=== PATIENT | female | born 1960 | race Hispanic/Latino ===

== ENCOUNTER 2022-11-01 10:39 | Observation (INO) | payer OTHER ==
--- OUTSIDE RECORDS SUMMARY | 2022-11-01 10:43 | XMS REPORT | Continuity of Care Document ---
:1960 Author Organization [facility] t Address [address] [facility] [address] [place] [address] Care Team Providers Name Role Phone SHARPLESS Primary Care Physician Unavailable Castellon, Na L Attending Clinician Unavailable Segun Stoddard Attending Clinician Unavailable RON PAZ Attending Clinician Unavailable DAYNA BLACKBURN Attending Clinician Unavailable LUISA DAVIS Attending Clinician Unavailable Castellon, Na Ly Attending Clinician Unavailable CHRIS PLUMMER Attending Clinician Unavailable CHERISE PANDA Attending Clinician Unavailable LORIE CASEY Attending Clinician Unavailable MD CÉSAR GABRIEL Attending Clinician Unavailable Castellon, Na L Admitting Clinician Unavailable RON PAZ Admitting Clinician Unavailable DAYNA BLACKBURN Admitting Clinician Unavailable LUISA DAVIS Admitting Clinician Unavailable Cande, Na Ly Admitting Clinician Unavailable CÉSAR GABRIEL Admitting Clinician Unavailable MD CÉSAR GABRIEL Admitting Clinician Unavailable Payers Payer Name Policy Type Policy Number Effective Date Expiration Date S anuradha AETVIANNEY PPO [id number] 2009 2009 OPEN [facility] NAP 00:00:00 00:00:00 CDC REVIEW [id number] 2019 00:00:00 AETNA 53 [id number] Common [facility] AETNA 2 [id number] 2021 00:00:00 Problems Condition Condition Condition Status Onset Resolution Last Treating Co mments Source Name Details Category Date Date Treatment Clinician Date Upper GI Upper GI Disease Active Metho di bleeding bleeding 8-20 st 00:00: Hospita 00 l [id number] Primary Problem Common hypertensi Spirit on [facility] Hypertensi HTN Problem Commo n on (hypertens Spirit ion) [facility] Osteoporos Osteoporos Problem C ommon is is, Spirit unspecifie [facility] d osteoporos [facility] is type, Medical unspecifie Center d pathologic al fracture presence High High Problem Common cholestero cholestero Sp elizabeth l [facility] [id number] Mixed Problem Common hyperlipid Spirit emia [facility] Esophageal Esophageal Problem C ommon reflux reflux [facility] [id number] Pain of Problem Common ulnar side Spirit of wrist [facility] [id number] Pain in Problem Commo n joint of Spirit left wrist [facility] [id number] [place] [id number] tunnel Spirit syndrome - [facility] of left [facility] Pain in Pain in Problem Active 2020-11-24 Me moria joint, joint, 02:46:12 l multiple multiple Niraj n sites sites Active Problem 11/24/2020 [facility] Elevated Elevated Problem [facility] blood 02:46:12 l pressure pressure Niraj n reading reading without without diagnosis diagnosis of of hypertensi hypertensi on on Active Problem 11/24/2020 [facility] Encntr Encntr Problem Active 2020-11-24 Natanael minh long-term long-term 02:46:12 l NSAID use NSAID use Herm gabino Active Problem 11/24/2020 [facility] Pain in Pain in Problem Active 2020-11-24 Me moria joint of joint of 02:46:12 l right right [place] shoulder shoulder Active Problem 11/24/2020 [facility] Long-term Long-term Problem Active 2020-11-24 Memoria use of use of 02:46:12 l high-risk high-risk Herm gabino medication medication Active Problem 11/24/2020 [facility] Seropositi Seroposit Problem Active 2020-11-24 Memoria ve saul 02:46:12 l rheumatoid 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 rmann arthritis 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 Active Problem 11/24/2020 [facility] Heartburn Heartburn Diagnosis Active 2019-07-26 Memoria Active 02:45:33 l Diagnosis [place] 07/26/2019 [facility] Rash Rash Diagnosis Active 2019-12-04 Mem oria Active 02:45:40 l Diagnosis [place] 12/04/2019 [facility] Hematemesi Hematemes Diagnosis Active 2019-12-04 Memoria s of is of 02:45:40 l unknown unknown [place] etiology etiology Active Diagnosis 12/04/2019 [facility] Pain in Pain in Problem Active 2020-11-24 M emoria left hand left hand 02:46:12 l Active [place] Problem 11/24/2020 [facility] Age-relate Age-relat Problem Active 2020-11-24 Memoria d ed 02:46:12 l osteoporos osteoporos He rmann is without is without current current pathologic pathologic al al fracture fracture Active Problem 11/24/2020 [facility] Pain in Pain in Problem Active 2020-11-24 Me moria right hand right hand 02:46:12 l Active [place] Problem 11/24/2020 [facility] Inflammato Inflammat Problem Active 2020-11-24 Memoria ry ory 02:46:12 l polyarthro polyarthro He rmann giselle giselle Active Problem 11/24/2020 [facility] Hiatal Hiatal Disease Active [facility] with GERD with GERD [facility] deepa s/p EGD, s/p EGD, Center robotic robotic assisted assisted laparoscop laparoscop ic hiatal ic hiatal hernia hernia repair repair with mesh with mesh near near Eli Eli fundoplica fundoplica tion tion 01/26/2020 01/26/2020 Allergies, Adverse Reactions, Alerts Allergy Allergy Status Severity Reaction(s) Onset Inactive Treating Comm ents Source Name Type Date Date Clinician Christiano Prolia Active high BP 2021-0 Memoria 9-21 l 00:00: [place] 00 Methotre Methotre Active hives Memori a xate xate 9-21 l 00:00: [place] 00 Enbrel Enbrel Active janets, ISR Memor ia 9-21 l 00:00: Clarence 00 ADHESIVE Allergy Active Low Hives 2019-[address] [facility] TAPE 0-12 [facility] Center Adhesive Drug Active Hives, Rash 2019-[address] [facility] Tape Allergy 0-12 [facility] 00 Center POLLEN Allergy Active Med [facility] EXTRACTS 9-10 [facility] 00 Center Pollen Drug Active Other [facility] Extracts Allergy 9-10 reaction( Luke s 00:00: s): Other Medical 00 (See Center Comments) Light headed,it henrique DENOSUMA Allergy Active Med Other [facility] B 6-25 [facility] 00:[facility]: Medical 00 Center METHOTRE Allergy Active High Hives [facility] XATE 5-28 [facility] 00:00: Medical 00 [place] ETANERCE Allergy Active Med Other [facility] PT 5-28 [facility] 00:[facility]: Medical 00 Center Etanerce Drug Active Other (See (Enbrel) [facility] pt Allergy Comments) 5-28 Other [facility] 00:00: reaction( Medical 00 s): [place] MAEGAN jaquez Methotre Drug Active Hives Other [facility] xate Allergy 5-28 reaction( [facility] 00:00: s): hives Medical 00 Center NO KNOWN Allergy Active [facility] ALLERGIE S Social History Social Habit Start Date Stop Date Quantity Comments Source History of Tobacco Common Spirit - Use [facility] [place] [facility] Alcohol intake 2020-01-27 2020-01-27 [facility] alcohol [facility] (finding) Cigarette 2019-12-15 2019-12-[address] [facility] pack-years 00:00:00 00:00:00 [facility] Center Tobacco use and 2019-12-15 2019-12-[address] [facility] exposure 00:00:00 00:00:00 tobacco non-user Medical Center Alcohol Comment 2019-12-15 2019-12-[address] [facility] 00:00:00 00:00:00 [facility] Cigarettes smoked 2019-12-15 2019-12-15 [facility] current (pack per 00:00:00 00:00:00 Medical Center day) - Reported History of Social 2019-10-25 2019-10-[address] function 00:00:00 00:00:00 Hospital Sex Ass[birth year] At [birth year] [facility] medina 00:00:00 00:00:00 [facility] Smoking Status Start Date Stop Date Source Never Smoker Common Spirit - [facility] Ex-smoker 2019-12-15 00:00:00 2019-12-15 00:00:00 [facility] Medications Ordered Filled Start Stop Current Ordering Indication Dosage Frequency Signature Comments Components Source Medication Medication Date Date Medication? Clinician (SIG) Name Name Beatriz 7.5 Mobic 7.5 2021-03- No 1{table QD Mobic 7.5 MG MG 04-11 t} MG 00:00: 00:00 00 :00 Mobic 7.5 Mobic 7.5 2021-03- No 1{table QD Mobic 7.5 MG MG 04-11 t} MG 00:00: 00:00 00 :00 Bystolic Yes Opal 1 tablet Memoria 9-22 Vo l 02:46: Clarence 12 Ezetimibe Yes Opal 1 tablet Memoria 9-22 Vo l 02:46: Clarence 12 Calcium Yes Opal 1 tablet Memoria 1200 - Vo with a l 02:46: meal [place] 12 Vitamin D Yes Opal 1 capsule Memoria 9-22 Vo l 02:46: [place] 12 Bystolic Yes Opal 1 tablet Memoria 9-22 Vo l 02:46: Clarence Zetia Yes Opal 1 tablet Me moria 9-22 Vo l 02:46: [place] 02 Vitamin D Yes Opal 1 capsule Memoria 9-22 Vo l 02:46: [place] 02 Calcium Yes Opal 2 tablets Memoria 9-22 Vo l 02:46: [place] 02 Zoledronic Yes Opal 100 ml Memoria Acid 9-22 Vo over 15 l 02:46: minutes Clarence 02 famotidine 2019-03 Yes 20mg Q.5D Take [address] (PEPCID) 20 1-24 by mouth 2 Judit kes MG tablet 18:30: (two) Medical 35 times Center daily. ezetimibe 2019-03 Yes 10mg QD Take [address] (ZETIA) 10 1-24 by mouth [facility] mg tablet 18:30: daily. Medica l 35 Center nebivoloL 2019-03 Yes 5mg QD Take [address] (BYSTOLIC) 1-24 by mouth [facility] 5 MG tablet 18:30: daily. Medi deepa 35 Center Famotidine 2019-03 Yes Nancy 1 tablet Me moria 0-01 Vilardo at bedtime l 02:45: Clarence 40 Vitamin D 2019-03 Yes Nancy 1 capsule Me moria 0-01 Vilardo l 02:45: Clarence 40 Zoledronic 2019-03 Yes Nancy as Memori a Acid 0-01 Vilardo directed l 02:45: Clarence 40 Iron 2019-03 Yes Nancy not Memoria 0-01 Vilardo defined l 02:45: Cla[place] 40 cholecalcif 2019-03 Yes [address] harry, 0-01 [facility] vitamin D3, 00:00: Medica l (VITAMIN 00 Center D3) 125 mcg (5,000 unit) capsule nebivoloL Yes 10mg QD Take 10 mg Me thodi (BYSTOLIC) 8-[address] 5 MG tablet 15:45: daily. Hosp brynn 16 l ezetimibe Yes 10mg QD Take 10 mg Me thodi (ZETIA) 10 8-[address] mg tablet 15:45: daily. Hospit a 16 l tofacitinib 2019-0 Yes 11mg QD Take 11 mg Methodi (Xeljanz 8-[address] XR) 11 mg 15:45: daily. Hospit a tablet 16 l extended release 24 hr Olmesartan Yes Opal 1 tablet Memoria Medoxomil 5-23 Vo l 02:45: [place] 33 Pravastatin 2019-0 Yes Opal 1 tablet Memoria Sodium 5-23 Vo l 02:45: Clarence 33 Duexis 2019-0 Yes Opal 1 tablet M emoria 5-23 Vo l 02:45: [place] 33 Folic Acid 2018- Yes Opal 3 tablets Memoria 0-16 Vo l 00:00: Iron 2018-0 Yes Opal not Memoria 9-20 Vo defined l 02:46: [place] 26 Xeljanz XR 2018- Yes Nancy 1 tablet Me moria 8-16 Vilardo l 00:00: Reclast 2018-0 Yes Opal as Natanael minh 8-15 Vo directed l 00:00: Sulfasalazi 2018-0 Yes Opal 1 tablet a Memoria ne 6-25 Vo day for a l 00:00: week then 1 twice a day for a week then 2 tablets twice a day Famotidine 2018- Yes Opal 1 tablet Memoria 5-28 Vo at bedtime l 00:00: Ibuprofen 2018- Yes Opal 1 tablet Memoria 5-28 Vo with food l 00:00: or milk as needed Zoledronic Zoledronic No Zoledronic Acid 5 Acid 5 Acid 5 MG/100ML MG/100ML MG/100ML Calcium 500 Calcium 500 No 1{table BID Calcium MG MG t_with_ 500 MG meals} Aspirin 81 Aspirin 81 No 1{table QD Aspirin 81 81 MG 81 MG t} 81 MG Calcium Calcium No Calcium 1200+D3 1200+D3 1200+D3 Ezetimibe Ezetimibe No 1{table QD Ezetimibe 10 MG 10 MG t} 10 MG Bystolic 5 Bystolic 5 No 1{table QD Bystolic 5 MG MG t} MG Vitamin D3 Vitamin D3 No 1{capsu QD Vitamin D3 50 MCG 50 MCG le} 50 MCG (1999) (1999) (1999) Zoledronic Zoledronic No Zoledronic Acid 5 Acid 5 Acid 5 MG/100ML MG/100ML MG/100ML Calcium 500 Calcium 500 No 1{table BID Calcium MG MG t_with_ 500 MG meals} Zoledronic Zoledronic No Zoledronic Acid 5 Acid 5 Acid 5 MG/100ML MG/100ML MG/100ML Vitamin D3 Vitamin D3 No 1{capsu QD Vitamin D3 50 MCG 50 MCG le} 50 MCG (1999) (1999) (1999) Aspirin 81 Aspirin 81 No 1{table QD Aspirin 81 81 MG 81 MG t} 81 MG Calcium Calcium No Calcium 1200+D3 1200+D3 1200+D3 Calcium 500 Calcium 500 No 1{table BID Calcium MG MG t_with_ 500 MG meals} Ezetimibe Ezetimibe No 1{table QD Ezetimibe 10 MG 10 MG t} 10 MG Bystolic 5 Bystolic 5 No 1{table QD Bystolic 5 MG MG t} MG Zoledronic Zoledronic No Zoledronic Acid 5 Acid 5 Acid 5 MG/100ML MG/100ML MG/100ML Vitamin D3 Vitamin D3 No 1{capsu QD Vitamin D3 50 MCG 50 MCG le} 50 MCG (1999) (1999) (1999) Aspirin 81 Aspirin 81 No 1{table QD Aspirin 81 81 MG 81 MG t} 81 MG Calcium Calcium No Calcium 1200+D3 1200+D3 1200+D3 Calcium 500 Calcium 500 No 1{table BID Calcium MG MG t_with_ 500 MG meals} Ezetimibe Ezetimibe No 1{table QD Ezetimibe 10 MG 10 MG t} 10 MG Bystolic 5 Bystolic 5 No 1{table QD Bystolic 5 MG MG t} MG Aspirin 81 Aspirin 81 No 1{table QD Aspirin 81 81 MG 81 MG t} 81 MG Calcium Calcium No Calcium 1200+D3 1200+D3 1200+D3 Ezetimibe Ezetimibe No 1{table QD Ezetimibe 10 MG 10 MG t} 10 MG Bystolic 5 Bystolic 5 No 1{table QD Bystolic 5 MG MG t} MG Vitamin D3 Vitamin D3 No 1{capsu QD Vitamin D3 50 MCG 50 MCG le} 50 MCG (1999) (1999) (1999) Zoledronic Zoledronic No Zoledronic Acid 5 Acid 5 Acid 5 MG/100ML MG/100ML MG/100ML Calcium 500 Calcium 500 No 1{table BID Calcium MG MG t_with_ 500 MG meals} Aspirin 81 Aspirin 81 No 1{table QD Aspirin 81 81 MG 81 MG t} 81 MG Calcium Calcium No Calcium 1200+D3 1200+D3 1200+D3 Ezetimibe Ezetimibe No 1{table QD Ezetimibe 10 MG 10 MG t} 10 MG Bystolic 5 Bystolic 5 No 1{table QD Bystolic 5 MG MG t} MG Vitamin D3 Vitamin D3 No 1{capsu QD Vitamin D3 50 MCG 50 MCG le} 50 MCG (1999) (1999 [place]) (1999) Vital Signs Vital Name Observation Time Observation Value Comments Source WEIGHT 2020-01-27 05:00:00 87.6 kg HEIGHT 2020-01-26 06:00:00 162.6 cm WEIGHT 2020-01-26 06:00:00 85.458 kg HEIGHT 2020-01-23 08:59:00 162.6 cm WEIGHT 2020-01-23 08:59:00 85.276 kg HEIGHT 2019-12-17 09:38:00 152.4 cm WEIGHT 2019-12-17 09:38:00 87.181 kg HEIGHT 2019-12-15 08:42:00 162.6 cm WEIGHT 2019-12-15 08:42:00 86.183 kg height 2022-02-08 10:00:00 62 [in_i] [facility] weight 2022-02-08 10:00:00 190.4 [lb_av] [facility] temperature 2022-02-08 10:00:00 97.9 [degF] [facility] bmi 2022-02-08 10:00:00 34.82 kg/m2 [facility] blood pressure 2022-02-08 10:00:00 124 mm[Hg] [facility] - systolic [facility] blood pressure 2022-02-08 10:00:00 83 mm[Hg] [facility] - diastolic [facility] blood pressure 2022-01-30 10:00:00 72 mm[Hg] Common [facility] - diastolic [facility] height 2022-01-30 10:00:00 62 [in_i] [facility] weight 2022-01-30 10:00:00 185.8 [lb_av] [facility] temperature 2022-01-30 10:00:00 97.6 [degF] [facility] bmi 2022-01-30 10:00:00 33.98 kg/m2 [facility] oximetry 2022-01-30 10:00:00 98 % [facility] respiratory rate 2022-01-30 10:00:00 16 /min Comm on [facility] blood pressure 2022-01-30 10:00:00 138 mm[Hg] Common [facility] - systolic [facility] height 2021-07-28 09:40:00 62 [in_i] [facility] weight 2021-07-28 09:40:00 187 [lb_av] Common [facility] temperature 2021-07-28 09:40:00 98 [degF] Common [facility] bmi 2021-07-28 09:40:00 34.2 kg/m2 [facility] oximetry 2021-07-28 09:40:00 99 % [facility] respiratory rate 2021-07-28 09:40:00 16 /min Comm on [facility] blood pressure 2021-07-28 09:40:00 136 mm[Hg] Common [facility] - systolic [facility] blood pressure 2021-07-28 09:40:00 81 mm[Hg] Common [facility] - diastolic [facility] WEIGHT 2020-01-27 05:00:00 87.6 kg HEIGHT 2020-01-26 06:00:00 162.6 cm WEIGHT 2020-01-26 06:00:00 85.458 kg HEIGHT 2020-01-23 08:59:00 162.6 cm WEIGHT 2020-01-23 08:59:00 85.276 kg HEIGHT 2019-12-17 09:38:00 152.4 cm WEIGHT 2019-12-17 09:38:00 87.181 kg HEIGHT 2019-12-15 08:42:00 162.6 cm WEIGHT 2019-12-15 08:42:00 86.183 kg HEIGHT 2019-12-15 12:15:00 162.6 cm WEIGHT 2019-12-15 12:15:00 86.637 kg HEIGHT 2019-12-15 12:15:00 162.6 cm WEIGHT 2019-12-15 12:15:00 86.637 kg Weight 2020-11-23 18:00:00 [facility] Height 2020-11-23 18:00:00 [facility] [place] Temperature Oral (F) 2020-11-23 18:00:00 96.8 F [facility] [place] Heart Rate 2020-11-23 18:00:00 [facility] [place] Diastolic (mm Hg) 2020-11-23 18:00:00 Mem orial [place] Systolic (mm Hg) 2020-11-23 18:00:00 Natanael rial [place] Weight 2019-12-02 15:15:00 [facility] [place] Height 2019-12-02 15:15:00 [facility] [place] Temperature Oral (F) 2019-12-02 15:15:00 97.6 F [facility] [place] Heart Rate 2019-12-02 15:15:00 [facility] [place] Diastolic (mm Hg) 2019-12-02 15:15:00 Mem orial [place] Systolic (mm Hg) 2019-12-02 15:15:00 Natanael rial [place] Weight 2019-04-03 19:00:00 [facility] [place] Height 2019-04-03 19:00:00 [facility] [place] Heart Rate 2019-04-03 19:00:00 [facility] [place] Diastolic (mm Hg) 2019-04-03 19:00:00 Mem orial [place] Systolic (mm Hg) 2019-04-03 19:00:00 Natanael rial [place] Weight 2018-11-14 19:00:00 [facility] [place] Height 2018-11-14 19:00:00 [facility] [place] Heart Rate 2018-11-14 19:00:00 [facility] [place] Diastolic (mm Hg) 2018-11-14 19:00:00 Mem orial [place] Systolic (mm Hg) 2018-11-14 19:00:00 Natanael rial [place] Weight 2018-10-17 16:00:00 [facility] [place] Height 2018-10-17 16:00:00 [facility] [place] Heart Rate 2018-10-17 16:00:00 [facility] [place] Diastolic (mm Hg) 2018-10-17 16:00:00 Mem orial [place] Systolic (mm Hg) 2018-10-17 16:00:00 Natanael rial [place] Weight 2018-08-27 16:30:00 [facility] [place] Height 2018-08-27 16:30:00 [facility] [place] Heart Rate 2018-08-27 16:30:00 [facility] [place] Diastolic (mm Hg) 2018-08-27 16:30:00 Mem orial [place] Systolic (mm Hg) 2018-08-27 16:30:00 Natanael rial [place] Weight 2018-07-30 18:30:00 [facility] [place] Height 2018-07-30 18:30:00 [facility] [place] Heart Rate 2018-07-30 18:30:00 [facility] [place] Diastolic (mm Hg) 2018-07-30 18:30:00 Mem orial [place] Systolic (mm Hg) 2018-07-30 18:30:00 Natanael rial [place] Procedures This patient has no known procedures. Plan of Care Planned Activity Planned Date Details Comments Source Future Scheduled 2022-11-03 Influenza Vaccine (#1) [facility] 00:00:00 [code = Influenza Vaccine Nv dicde Center (#1)] Future Scheduled 2022-10-29 Screening for malignant [facility] Test 12:45:45 neoplasm of colon Hospital (procedure) [code = 059422377] Future Scheduled 2022-10-29 Screening for malignant [facility] Test 12:45:45 neoplasm of colon Hospital (procedure) [code = 036625663] Future Scheduled 2022-10-29 Screening for malignant [facility] Test 12:45:45 neoplasm of colon Hospital (procedure) [code = 004445847] Future Scheduled 2022-10-29 COVID-19 VACCINE (#1) [facility] 12:45:45 [code = COVID-19 VACCINE Hos pital (#1)] Future Scheduled 2022-10-29 Hepatitis C screening [facility] 12:45:45 (procedure) [code = Hospital 790719163] Future Scheduled 2022-10-29 Screening for malignant [facility] 12:45:45 neoplasm of cervix Hospital (procedure) [code = 715153676] Future Scheduled 2022-10-29 BREAST CANCER SCREENING [facility] 12:45:45 [code = BREAST CANCER Hospit al SCREENING] Future Scheduled 2022-10-29 Screening for malignant [facility] Test 12:45:45 neoplasm of colon Hospital (procedure) [code = 277784868] Future Scheduled 2022-10-29 Screening for malignant [facility] Test 12:45:45 neoplasm of colon Hospital (procedure) [code = 801129891] Future Scheduled 2022-10-29 SHINGLES VACCINES (1 of [facility] 12:45:45 2[facility] Future Scheduled 2022-10-29 INFLUENZA VACCINE (#1) M ethodist Test 12:45:45 [code = INFLUENZA VACCINE Ho spital (#1)] Future Scheduled 2022-03-[address] [facility] Test 00:00:00 (12+) [code = DEPRESSION Med ica Center SCREENING (12+)] Future Scheduled 2021-01-[address] [facility] Test 00:00:00 Counseling and Screening [facility] (12+) [code = Tobacco Cessation Counseling and Screening (12+)] Future Scheduled 2008-02-10 SHINGLES VACCINES ([address] [facility] Test 00:00:00 2) [code = SHINGLES [facility] VACCINES (1 of 2)] Future Scheduled 2003 Lipid panel (procedure) [facility] Test 00:00:00 [code = 10835134] Medical Ce nter Future Scheduled 1979 Screening for malignant [facility] Test 00:00:00 neoplasm of cervix Medical C enter (procedure) [code = 764818175] Future Scheduled 1977 DTAP/TDAP/TD VACCINES ([address] [facility] Test 00:00:00 - Tdap) [code = Medical Cent er DTAP/TDAP/TD VACCINES (1 - Tdap)] Future Scheduled 1976-02-10 HEPATITIS C SCREENING [facility] Test 00:00:00 [code = HEPATITIS C Medical Center SCREENING] Future Scheduled [address] [facility] Test 00:00:00 virus screening Medical Cent er (procedure) [code = 650970857] Future Scheduled 1960 COVID-19 VACCINE (#1) [facility] 00:00:00 [code = COVID-19 VACCINE Med ica Center (#1)] Future Scheduled 1958 Screening for malignant [facility] Test 00:00:00 neoplasm of breast Medical C enter (procedure) [code = 784727532] Future Scheduled 1958 CT Colonography (combo) [facility] Test 00:00:00 [code = CT Colonography [facility] (combo)] Future Scheduled 1958 Screening for malignant [facility] Test 00:00:00 neoplasm of colon Medical Ce nter (procedure) [code = 911008748] Future Scheduled 1958 Screening for malignant [facility] Test 00:00:00 neoplasm of colon Medical Ce nter (procedure) [code = 908724197] Future Scheduled 1958 Screening for malignant [facility] Test 00:00:00 neoplasm of colon Medical Ce nter (procedure) [code = 453418979] Future Scheduled 1958 Screening for malignant [facility] Test 00:00:00 neoplasm of colon Medical Ce nter (procedure) [code = 487597806] Future Scheduled 1960 Sigmoidoscopy [code = [facility] Test 00[facility]00 Sigmoidoscopy] Medical Cente r Encounters Start End Encounter Admission Attending Care Care Encounter Source Date/Time Date/Time Type Type Clinicians Facility Department ID 2022-11-01 Outpatient [id number] Memoria 10:42:21 [id number] Clarence [id number] 2022-02-08 Outpatient Castellon, Na STLMLC STLC [id number] Common 10:29:03 [facility] 2022-02-01 Outpatient Castellon, Na STLMLC STLMLC [id number] Common 13:30:01 [facility] 2022-01-25 Outpatient Castellon, Na STLMLC STLMLC [id number] Common 10:35:01 [facility] 2021-08-09 Outpatient Castellon, Na STLMLC STLMLC [id number] Common 14:01:01 [facility] 2021-07-28 Outpatient Stoddard, STLMLC STLMLC [id number] Common 09:41:03 [facility] 2020-12-08 Outpatient JACKSON, [facility] Surgery [id number] [facility] 12:57:33 RON 2020-12-08 Outpatient EMILY, [facility] Surgery [id number] [facility] 07:56:00 SUNEAL 2020-12-08 Outpatient SUSAN, [facility] Surgery [id number] [facility] 07:55:56 LUISA 2022-02-08 2022-02-08 OFFICE STLMLC STLMLC [id number] Co mmon 00:00:00 00:00:00 VISIT NEW Spir it PT LEVEL 3 [facility] 2022-01-30 2022-01-30 OFFICE STLMLC STLMLC [id number] Co mmon 00:00:00 00:00:00 VISIT EST Spir it PT LEVEL 3 [facility] 2021-12-16 2021-12-16 [id number] [facility] 12:00:00 12:00:00 34 [facility] 2021-08-09 2021-08-09 (WEB) STLMLC STLMLC [id number] Co mmon 00:00:00 00:00:00 [facility] 2021-07-28 2021-07-28 (TEL) STLMLC STLMLC [id number] Co mmon 00:00:00 00:00:00 [facility] 2021-07-28 2021-07-28 OFFICE STLMLC STLMLC [id number] Co mmon 00:00:00 00:00:00 VISIT EST Spir it PT LEVEL 3 [facility] 2021-04-07 2021-04-07 Outpatient VILMA PLUMMER [id number] Vilma 10:00:00 10:00:00 CHRIS ulloa 2020-11-23 2020-11-23 Outpatient PRL - PRL - [id number] eClinic 13:20:00 13:20:00 Rheumatol Rheumatolog alWorks ogy [facility] 2020-11-23 2020-11-23 Outpatient PRL - PRL - [id number] eClinic 13:00:00 13:00:00 Rheumatol Rheumatolog alWorks ogy y [facility] 2020-02-12 2020-02-12 Outpatient ARUN VALAYIL, SLEH SLEH [id number] SLEH 00:00:00 00:00:00 CHERISE 2020-01-23 2020-01-23 Outpatient EL SLEH SLEH [id number] SLEH 00:00:00 00:00:00 2020-01-23 2020-01-23 Outpatient SLEH SLEH [id number] SLEH 00:00:00 00:00:00 2020-01-23 2020-01-23 Outpatient EL SLEH SLEH [id number] SLEH 00:00:00 00:00:00 2020-01-23 2020-01-23 Outpatient EL SLEH SLEH [id number] SLEH 00:00:00 00:00:00 2020-01-23 2020-01-23 Outpatient EL SLEH SLEH [id number] SLEH 00:00:00 00:00:00 2019-12-15 2019-12-15 Outpatient EL SLEH SLEH [id number] SLEH 00:00:00 00:00:00 2019-12-15 2019-12-15 Outpatient EL SLEH SLEH [id number] SLEH 00:00:00 00:00:00 2019-12-02 2019-12-02 Outpatient AUGUST - AUGUST - [id number] eClinic 13:01:00 13:01:00 Rheumatol Rheumatolog alWorks ogy y [facility] 2019-12-02 2019-12-02 Outpatient PRL - PRL - [id number] eClinic 10:15:00 10:15:00 Rheumatol Rheumatolog alWorks ogy y [facility] 2019-11-18 2019-11-18 Outpatient AUGUST - AUGUST - [id number] eClinic 22:14:00 22:14:00 Rheumatol Rheumatolog alWorks ogy y [facility] 2019-10-23 2019-10-25 Inpatient AHMED, [facility] [id number] [place] [address] 00:00:00 00:00:00 YAHYA [address] 2019-10-22 2019-10-22 Outpatient AUGUST - AUGUST - [id number] eClinic 14:55:00 14:55:00 Rheumatol Rheumatolog alWorks ogy y [facility] 2019-10-21 2019-10-21 Outpatient AUGUSTMariluz COXU - [id number] eClinic 13:06:00 13:06:00 Rheumatol Rheumatolog alWorks ogy y [facility] 2019-10-20 2019-10-20 Outpatient AUGUST - AUGUST - [id number] eClinic 10:08:00 10:08:00 Rheumatol Rheumatolog alWorks ogy y [facility] 2019-10-03 2019-10-03 Outpatient PRL - PRL - [id number] eClinic 16:10:00 16:10:00 Rheumatol Rheumatolog alWorks ogy y [facility] 2019-07-25 2019-07-25 Outpatient AUGUST - AUGUST - [id number] eClinic 15:30:00 15:30:00 Rheumatol Rheumatolog alWorks ogy y [facility] 2019-07-21 2019-07-21 Outpatient PRL - PRL - [id number] eClinic 15:09:00 15:09:00 Rheumatol Rheumatolog alWorks ogy y [facility] 2019-04-07 2019-04-07 Outpatient AUGUST - AUGUST - [id number] eClinic 16:00:00 16:00:00 Rheumatol Rheumatolog alWorks ogy y [facility] 2019-04-03 2019-04-03 Outpatient AUGUST - AUGUST - [id number] eClinic 14:44:00 14:44:00 Rheumatol Rheumatolog alWorks ogy y [facility] 2019-04-03 2019-04-03 Outpatient PRL - PRL - [id number] eClinic 14:00:00 14:00:00 Rheumatol Rheumatolog alWorks ogy y [facility] 2018-12-18 2018-12-18 Outpatient AUGUST - AUGUST - [id number] eClinic 13:00:00 13:00:00 Rheumatol Rheumatolog alWorks ogy y [facility] 2018-12-09 2018-12-09 Outpatient AUGUST - AUGUST - [id number] eClinic 14:24:00 14:24:00 Rheumatol Rheumatolog alWorks ogy y [facility] 2018-12-09 2018-12-09 Outpatient AUGUST - AUGUST - [id number] eClinic 14:21:00 14:21:00 Rheumatol Rheumatolog alWorks ogy y [facility] 2018-11-14 2018-11-14 Outpatient AUGUST - AUGUST - [id number] eClinic 14:55:00 14:55:00 Rheumatol Rheumatolog alWorks ogy y [facility] 2018-11-14 2018-11-14 Outpatient PRL - PRL - [id number] eClinic 14:00:00 14:00:00 Rheumatol Rheumatolog alWorks ogy y [facility] 2018-10-17 2018-10-17 Outpatient PRL - PRL - [id number] eClinic 11:00:00 11:00:00 Rheumatol Rheumatolog alWorks ogy y [facility] 2018-08-31 2018-08-31 Outpatient AUGUST - AUGUST - [id number] eClinic 11:04:00 11:04:00 Rheumatol Rheumatolog alWorks ogy y [facility] 2018-08-27 2018-08-27 Outpatient AUGUST - AUGUST - [id number] eClinic 12:44:00 12:44:00 Rheumatol Rheumatolog alWorks ogy y [facility] 2018-08-27 2018-08-27 Outpatient PRL - PRL - [id number] eClinic 11:30:00 11:30:00 Rheumatol Rheumatolog alWorks ogy y [facility] 2018-08-07 2018-08-07 Outpatient AUGUST - AUGUST - [id number] eClinic 09:53:00 09:53:00 Rheumatol Rheumatolog alWorks ogy y [facility] 2018-07-30 2018-07-30 Outpatient PRL - PRL - [id number] eClinic 13:30:00 13:30:00 Rheumatol Rheumatolog alWorks ogy y [facility] Results Test Description Test Time Test Comments Results Result [facility] e Comments RAD, CHEST, 2 2020-02-03 Reason for VIEWS 1 Exam:->SOBReason 10:09:00 for Exam:->CHEST [facility] TIGHT[facility] : 1960 Sex: F FINAL REPORT EXAMINATION: RAD, CHEST, 2 VIEWS INDICATION: SOBCHEST TIGHTNESS COMPARISON: 01/27/2020 FINDINGS:TUBES and LINES: None. LUNGS: Lungs are well inflated. Perihilar peribronchial hazy opacity could be due to bronchitis.. There is no evidence of pneumonia or pulmonary edema. PLEURA: Small left pleural effusion. No pneumothorax. HEART AND MEDIASTINUM: The cardiomediastinal silhouette is unremarkable. BONES AND SOFT TISSUES: No acute osseous lesion. Soft tissues are unremarkable. UPPER ABDOMEN: No free air under the diaphragm. IMPRESSION: Perihilar peribronchial hazy opacity could be due to bronchitis. Small left pleural effusion. Signed: Jamey Sanchez [facility] Verified Date/Time: 02/13/2020 10:09:46 Reading Location: [facility] Reading Room [address] [place] [address] , ESOPHAGUS 2020-01-05 Reason for 4 exam:->S/p Hiatal 14:34:00 hernia repair with [facility] mesh and Toupet [facility] fundoplication CENTERName: KEILY NGUYEN : 1960 Sex: F FINAL REPORT EXAM: Esophagram was performed with water-soluble contrast. INDICATION: S/p Hiatal hernia repair with mesh and Toupet fundoplication. COMPARISON: None. FINDINGS:After injection of water-soluble contrast, the contrast does pass readily into the stomach without a leak. Fluoroscopy time: 1.67 minutesNumber of images: 12 IMPRESSION: Normal esophagram after mesh hiatal hernia repair and fundoplication. No leak. Signed: Lizbeth Navarro Verified Date/Time: 01/27/2020 14:34:31 Reading Location: [address] Consult Reading Room , CHEST, 1 2020-01-05 Reason for VIEW, NON DEPT 4 exam:->s/p ChT 11:49:[address] be performed at the [facility]?->Yes CENTERName: KEILY NGUYEN : 1960 Sex: F FINAL REPORT RAD, CHEST, 1 VIEW, NON DEPT INDICATION: s/p ChT removal COMPARISON: 8 hours prior FINDINGS: Portable frontal view of the chest. IMPRESSION: Support Lines: Pigtail catheter and enteric tube have been removed. Lungs and pleura: Lungs are underinflated but without new consolidation. Small left effusion. No pneumothorax.Heart and mediastinum: Stable contours. Additional findings: None. Signed: JR Lantigua Robert MDReport Verified Date/Time: 01/27/2020 11:49:26 Reading Location: [facility] Radiology Reading Room ESIUM 2020-01-27 11:38:00 Test Item Value Reference Range Interpretation Comme nts MAGNESIUM (ZUNILDA) (test code = 627) 2.3 mg/dL 1.6-2.6 Mechanical Cad Drafter ID - SABRINA CRISTINAOCT-GLUCOSE [id number] 11:24:00 Test Item Value Reference Range Interpretation Comments POC-GLUCOSE METER 106 mg/dL 70-110 : [facility] (ZUNILDA) (test code = [place], 1538) [address]: Mechanical Cad Drafter/Techni nehemias ID = [id number] for WILLARD CJ GOMEZ RAD, CHEST, 1 VIEW, NON [id number] 07:02:00Reason for exam:->s/p pigtail placementShould this be performed at the bedside?->Yes [facility] 1960 Sex: FFINAL REPORT RAD, CHEST, 1 VIEW, NON DEPT INDICATION: s/p pigtail placement COMPARISON: Prior day's exam FINDINGS: Portable frontal view of the chest. IMPRESSION: Support Lines: Stable. Lungs and pleura: Hypoinflated lungs without new consolidation. Central congestive changes are favored torepresent subsegmental atelectasis. No visible pneumothorax.Heart and mediastinum: Stable contours. Additional findings: None. Signed: JR Lantigua Robert MDReport Verified Date/Time: 01/27/2020 07:02:09 Reading Location: [address] Consult Reading Room BASIC METABOLIC [id number] 04:50:00 Test Item Value Reference Range Interpretation Comments SODIUM (BEAKER) 138 meq/L 136-145 (test code = 381) POTASSIUM (BEAKER) 4.2 meq/L 3.5-5.1 (test code = 379) CHLORIDE (BEAKER) 111 meq/L 98-107 H (test code = 382) CO2 (BEAKER) (test 19 meq/L 22-29 L code = 355) BLOOD UREA NITROGEN 11 mg/dL 7-21 (BEAKER) (test code = 354) CREATININE (BEAKER) 0.68 mg/dL 0.57-1.25 (test code = 358) GLUCOSE RANDOM 113 mg/dL 70-105 H (BEAKER) (test code = 652) CALCIUM (BEAKER) 8.0 mg/dL 8.4-10.2 L (test code = 697) EGFR (BEAKER) (test 88 mL/min/1.73 ESTIMA GEOVANNY GFR IS code = 1092) sq m NOT ACCURATE CREATININE CLEARANCE IN PREDICTING GLOMERULAR FILTRATION RATE . ESTIMATED GFR I S NOT APPLICABLE FOR DIALYSIS PATIEN TS. Mechanical Cad Drafter ID - PIAYA [id number] 04:50:00 Test Item Value Reference Range Interpretation Comments MAGNESIUM (BEAKER) (test code = 2.1 mg/dL 1.6-2.6 627) Mechanical Cad Drafter ID - PIAYA LCBC W/PLT COUNT & AUTO [id number] 03:50:00 Test Item Value Reference Range Interpretation Comments WHITE BLOOD CELL COUNT (BEAKER) 11.0 K/ L 3.5-10.5 H (test code = 775) RED BLOOD CELL COUNT (BEAKER) 4.01 M/ L 3.93-5.22 (test code = 761) HEMOGLOBIN (BEAKER) (test code = 12.0 GM/DL 11.2-15.7 410) HEMATOCRIT (BEAKER) (test code = 37.7 % 34.1-44.9 411) MEAN CORPUSCULAR VOLUME (BEAKER) 94.0 fL 79.4-94.8 (test code = 753) MEAN CORPUSCULAR HEMOGLOBIN 29.9 pg 25.6-32.2 (BEAKER) (test code = 751) MEAN CORPUSCULAR HEMOGLOBIN CONC 31.8 GM/DL 32.2-35.5 L (BEAKER) (test code = 752) RED CELL DISTRIBUTION WIDTH 12.4 % 11.7-14.4 (BEAKER) (test code = 412) PLATELET COUNT (BEAKER) (test 164 K/CU MM 150-450 code = 756) MEAN PLATELET VOLUME (BEAKER) 11.3 fL 9.4-12.3 (test code = 754) NUCLEATED RED BLOOD CELLS 0 /100 WBC 0-0 (BEAKER) (test code = 413) NEUTROPHILS RELATIVE PERCENT 80 % (BEAKER) (test code = 429) LYMPHOCYTES RELATIVE PERCENT 11 % (BEAKER) (test code = 430) MONOCYTES RELATIVE PERCENT 9 % (BEAKER) (test code = 431) EOSINOPHILS RELATIVE PERCENT 0 % (BEAKER) (test code = 432) BASOPHILS RELATIVE PERCENT 0 % (BEAKER) (test code = 437) NEUTROPHILS ABSOLUTE COUNT 8.79 K/ L 1.56-6.13 H (BEAKER) (test code = 670) LYMPHOCYTES ABSOLUTE COUNT 1.20 K/ L 1.18-3.74 (BEAKER) (test code = 414) MONOCYTES ABSOLUTE COUNT (BEAKER) 0.95 K/ L 0.24-0.36 H (test code = 415) EOSINOPHILS ABSOLUTE COUNT 0.00 K/ L 0.04-0.36 L (BEAKER) (test code = 416) BASOPHILS ABSOLUTE COUNT (BEAKER) 0.02 K/ L 0.01-0.08 (test code = 417) IMMATURE GRANULOCYTES-RELATIVE 0 % 0-1 PERCENT (BEAKER) (test code = 2801) BLOOD GAS, [id number] 03:24:00 Test Item Value Reference Range Interpretation Comments PH ARTERIAL (BEAKER) (test code = 7.42 7.35-7.45 383) PCO2 ARTERIAL (BEAKER) (test code 34 mm Hg 35-45 L = 384) PO2 ARTERIAL (BEAKER) (test code 80 mm Hg 80-90 = 385) O2 SATURATION ARTERIAL (BEAKER) 96.1 % 96.0-97.0 (test code = 386) HCO3 ARTERIAL (BEAKER) (test code 22 mmol/L 21-29 = 388) BASE EXCESS ARTERIAL (BEAKER) -2.2 mmol/L -2.0-3.0 L (test code = 387) PATIENT TEMPERATURE (BEAKER) 37.0 (test code = 1818) FIO2 (BEAKER) (test code = 1819) 32.0 POCT-GLUCOSE [id number] 20:57:00 Test Item Value Reference Range Interpretation Comments POC-GLUCOSE METER 121 mg/dL 70-110 H : TESTED A T [facility] 6720 (BEAKER) (test code = ALIX [facility], 1538) [address]: Mechanical Cad Drafter/Techni nehemias ID = [id number] for RA GLAND, THANIA POCT-GLUCOSE [id number] 18:40:00 Test Item Value Reference Range Interpretation Comments POC-GLUCOSE METER 137 mg/dL 70-110 H : TESTED A T [facility] 6720 (BEAKER) (test code = ALIX [facility], 1538) 78[address]: Mechanical Cad Drafter/Techni nehemias ID = [id number] for Ree d, Pepper [id number] 18:39:00 Test Item Value Reference Range Interpretation Comments MAGNESIUM (BEAKER) (test code = 2.3 mg/dL 1.6-2.6 627) Mechanical Cad Drafter ID - ADMINRAD, CHEST, 1 VIEW, NON [id number] 13:31:00Reason for exam:->s/p hiatal hernia repair and Toupet with R pigtail placementShould this be performed at the bedside?->Yes [facility] 1960 Sex: FFINAL REPORT RAD, CHEST, 1 VIEW, NON DEPT INDICATION: s/p hiatal hernia repair and Toupetwith R pigtail placement COMPARISON: January 23, 2020 FINDINGS: Portable frontal view of the chest.IMPRESSION: Support Lines: Enteric tube side-port is well beyond the GE junction. A pigtail catheteris present over the right hemithorax. Lungs and pleura: Lungs are hypoinflated with central congestive changes and scattered subsegmental atelectasis. No pneumothorax.Heart and mediastinum: Stable contours. Additional findings: None. Signed: JR Lantigua Robert MDReport Verified Date/Time: 01/26/2020 13:31:31 Reading Location: [facility] Radiology Reading Room BASIC METABOLIC [id number] 13:12:00 Test Item Value Reference Range Interpretation Comments SODIUM (BEAKER) 139 meq/L 136-145 (test code = 381) POTASSIUM (BEAKER) 3.9 meq/L 3.5-5.1 (test code = 379) CHLORIDE (BEAKER) 112 meq/L 98-107 H (test code = 382) CO2 (BEAKER) (test 18 meq/L 22-29 L code = 355) BLOOD UREA NITROGEN 13 mg/dL 7-21 (BEAKER) (test code = 354) CREATININE (BEAKER) 0.82 mg/dL 0.57-1.25 (test code = 358) GLUCOSE RANDOM 183 mg/dL 70-105 H (BEAKER) (test code = 652) CALCIUM (BEAKER) 8.9 mg/dL 8.4-10.2 (test code = 697) EGFR (BEAKER) (test 71 mL/min/1.73 ESTIMA GEOVANNY GFR IS code = 1092) sq m NOT ACCURATE CREATININE CLEARANCE IN PREDICTING GLOMERULAR FILTRATION RATE . ESTIMATED GFR I S NOT APPLICABLE FOR DIALYSIS PATIEN TS. Mechanical Cad Drafter ID - EDU [id number] 13:12:00 Test Item Value Reference Range Interpretation Comments MAGNESIUM (BEAKER) (test code = 1.9 mg/dL 1.6-2.6 627) Mechanical Cad Drafter ID - EDU CCBC W/PLT COUNT & AUTO [id number] 12:55:00 Test Item Value Reference Range Interpretation Comments WHITE BLOOD CELL COUNT (BEAKER) 13.7 K/ L 3.5-10.5 H (test code = 775) RED BLOOD CELL COUNT (BEAKER) 4.43 M/ L 3.93-5.22 (test code = 761) HEMOGLOBIN (BEAKER) (test code = 13.7 GM/DL 11.2-15.7 410) HEMATOCRIT (BEAKER) (test code = 42.5 % 34.1-44.9 411) MEAN CORPUSCULAR VOLUME (BEAKER) 95.9 fL 79.4-94.8 H (test code = 753) MEAN CORPUSCULAR HEMOGLOBIN 30.9 pg 25.6-32.2 (BEAKER) (test code = 751) MEAN CORPUSCULAR HEMOGLOBIN CONC 32.2 GM/DL 32.2-35.5 (BEAKER) (test code = 752) RED CELL DISTRIBUTION WIDTH 12.2 % 11.7-14.4 (BEAKER) (test code = 412) PLATELET COUNT (BEAKER) (test 187 K/CU MM 150-450 code = 756) MEAN PLATELET VOLUME (BEAKER) 11.1 fL 9.4-12.3 (test code = 754) NUCLEATED RED BLOOD CELLS 0 /100 WBC 0-0 (BEAKER) (test code = 413) NEUTROPHILS RELATIVE PERCENT 88 % (BEAKER) (test code = 429) LYMPHOCYTES RELATIVE PERCENT 7 % (BEAKER) (test code = 430) MONOCYTES RELATIVE PERCENT 4 % (BEAKER) (test code = 431) EOSINOPHILS RELATIVE PERCENT 0 % (BEAKER) (test code = 432) BASOPHILS RELATIVE PERCENT 0 % (BEAKER) (test code = 437) NEUTROPHILS ABSOLUTE COUNT 12.11 K/ L 1.56-6.13 H (BEAKER) (test code = 670) LYMPHOCYTES ABSOLUTE COUNT 0.90 K/ L 1.18-3.74 L (BEAKER) (test code = 414) MONOCYTES ABSOLUTE COUNT (BEAKER) 0.57 K/ L 0.24-0.36 H (test code = 415) EOSINOPHILS ABSOLUTE COUNT 0.01 K/ L 0.04-0.36 L (BEAKER) (test code = 416) BASOPHILS ABSOLUTE COUNT (BEAKER) 0.04 K/ L 0.01-0.08 (test code = 417) IMMATURE GRANULOCYTES-RELATIVE 1 % 0-1 PERCENT (BEAKER) (test code = 280) CALCIUM, [id number] 12:50:00 Test Item Value Reference Range Interpretation Comments CALCIUM IONIZED (BEAKER) (test 1.21 mmol/L 1.12-1.27 code = 698) PH, BLOOD (ZUNILDA) (test code = 7.26 1810) POCT-GLUCOSE [id number] 11:28:00 Test Item Value Reference Range Interpretation Comments POC-GLUCOSE METER 105 mg/dL 70-110 : TESTED A T [facility] 6720 (ZUNILDA) (test code = [place], 1538) [id number]: Mechanical Cad Drafter/Techni nehemias ID = [id number] for Marilyn Alvarenga SARS-COV2/RT-PCR ([facility])2020-01-24 08:53:00 Test Item Value Reference Range Interpretation Comments SARS-COV2/RT-PCR (test Negative Not Detected, Negative, code = 0409635) See external report for linked test SARS-COV-2 PERFORMING LAB [facility] LINDSAY (test code = 7473749) Negative result for this test determines that SARS-CoV-2 RNA was not present in the specimen above the Limit of Detection (LOD). However, Negative results do not preclude SARS-CoV-2 infection and should not be used as the sole basis for treatment or patient management decisions. Negative results must be combined with clinical observations, patient history, and epidemiological information. A false negative result may occur if a specimen is improperly collected, transported or handled. A false negative result should be considered if patient's recent exposures or clinical presentation indicate that COVID-19 (SARS-CoV-2) is likely and diagnostic tests for other causes of illness are negative. Re-testing should be considered in cases of suspected false negatives.The limit of detection for this assay is 100 copies/mL.This SARS CoV-2 test is a real-time RT-PCR test intended for the qualitative detection of nucleic acid from SARS-CoV-2 in a nasopharyngeal swab specimen collected from individuals suspected of COVID-19 by their healthcare provider.This test has not been Food and Drug Administration (FDA) cleared or approved. This is a modified version of an approved Emergency Use Authorization (EUA) and is in the process of review by the FDA. Once authorized by the FDA, the issued EUA will be effective until the declaration that circumstances exist justifying the authorization of the emergency use ofin vitro diagnostic tests for detection and/or diagnosis of COVID-19 is terminated under Section 564(b)(2) of the Act or the EUA is revoked under Section 564(g) of the Act.Testing was performed using the Scanlon SARS-CoV-2 assay.Fact Sheet for Healthcare Providers:https://www.[employer]/eugenio/RT_SAR X-JcU-5_MAG_Tlsp_Fuuos_02-721500.pdfFact Sheet for Healthcare Patients:https://www.[employer]/s al/RN_WJZN-CmC-1_Yrbsess_Ivhk_Hdcor_KH_10-297879R6.pdfPerforming Laboratory:[facility] [place] [address] COMPREHENSIVE METABOLIC [id number] 12:31:00 Test Item Value Reference Range Interpretation Comments TOTAL PROTEIN 7.5 gm/dL 6.0-8.3 (BEAKER) (test code = 770) ALBUMIN (BEAKER) 4.5 g/dL 3.5-5.0 (test code = 1145) ALKALINE PHOSPHATASE 57 U/L 40-150 (BEAKER) (test code = 346) BILIRUBIN TOTAL 0.6 mg/dL 0.2-1.2 (BEAKER) (test code = 377) SODIUM (BEAKER) (test 138 meq/L 136-145 code = 381) POTASSIUM (BEAKER) 4.0 meq/L 3.5-5.1 (test code = 379) CHLORIDE (BEAKER) 108 meq/L 98-107 H (test code = 382) CO2 (BEAKER) (test 24 meq/L 22-29 code = 355) BLOOD UREA NITROGEN 15 mg/dL 7-21 (BEAKER) (test code = 354) CREATININE (BEAKER) 0.81 mg/dL 0.57-1.25 (test code = 358) GLUCOSE RANDOM 90 mg/dL 70-105 (BEAKER) (test code = 652) CALCIUM (BEAKER) 9.9 mg/dL 8.4-10.2 (test code = 697) AST (SGOT) (BEAKER) 24 U/L 5-34 (test code = 353) ALT (SGPT) (BEAKER) 25 U/L 6-55 (test code = 347) EGFR (BEAKER) (test 72 mL/min/1.73 ESTIMA GEOVANNY GFR IS code = 1092) sq m NOT ACCURATE CREATININE CLEARANCE IN PREDICTING GLOMERULAR FILTRATION RATE . ESTIMATED GFR I S NOT APPLICABLE FOR DIALYSIS PATIEN TS. Mechanical Cad Drafter ID - MNOIQUE, CHEST, 2 [id number] 12:25:00Reason for exam:- >Gastroesophageal reflux disease, unspecified whether esophagitis present [K21.9][facility] CENTERName: [facility]ILY [facility]GUYEN : 1960 Sex: FFINAL REPORT PA and Lateral views of the chest dated 01/23/2020 Clinical information: Gastroesophageal reflux disease, unspecified whether esophagitis present [K21.9] Comment: Heart is normal in size. Pulmonary vasculature is unremarkable. Lungs are clear. No pulmonary infiltrate or pleural effusion is present. Impression: No active cardiopulmonary disease. Signed: Cathy Guerineport Verified Date/Time: 01/23/2020 12:25:56 PT/[id number] 12:19:00 Test Item Value Reference Range Interpretation Comments PROTIME (BEAKER) (test code = 13.5 seconds 11.9-14.2 759) INR (BEAKER) (test code = 370) 1.06 <=5.90 PARTIAL THROMBOPLASTIN TIME 26.6 seconds 22.5-36.0 (BEAKER) (test code = 760) Effective 07/31/2018: PT Reference Range ChangeNew: 11.9-14.2 Previous: 11.7- 14.7RECOMMENDED COUMADIN/WARFARIN INR THERAPY RANGESSTANDARD DOSE: 2.0-3.0 Includes: PROPHYLAXIS for venous thrombosis, systemic embolization; TREATMENT for venous thrombosis and/or pulmonary embolus.HIGH RISK: Target INR is 2.5-3.5 for patients wiht mechanical heart valves.CBC W/PLT COUNT & AUTO [id number] 12:12:00 Test Item Value Reference Range Interpretation Comments WHITE BLOOD CELL COUNT (BEAKER) 6.5 K/ L 3.5-10.5 (test code = 775) RED BLOOD CELL COUNT (BEAKER) 4.87 M/ L 3.93-5.22 (test code = 761) HEMOGLOBIN (BEAKER) (test code = 14.8 GM/DL 11.2-15.7 410) HEMATOCRIT (BEAKER) (test code = 46.2 % 34.1-44.9 H 411) MEAN CORPUSCULAR VOLUME (BEAKER) 94.9 fL 79.4-94.8 H (test code = 753) MEAN CORPUSCULAR HEMOGLOBIN 30.4 pg 25.6-32.2 (BEAKER) (test code = 751) MEAN CORPUSCULAR HEMOGLOBIN CONC 32.0 GM/DL 32.2-35.5 L (BEAKER) (test code = 752) RED CELL DISTRIBUTION WIDTH 12.4 % 11.7-14.4 (BEAKER) (test code = 412) PLATELET COUNT (BEAKER) (test 213 K/CU MM 150-450 code = 756) MEAN PLATELET VOLUME (BEAKER) 11.7 fL 9.4-12.3 (test code = 754) NUCLEATED RED BLOOD CELLS 0 /100 WBC 0-0 (BEAKER) (test code = 413) NEUTROPHILS RELATIVE PERCENT 60 % (BEAKER) (test code = 429) LYMPHOCYTES RELATIVE PERCENT 27 % (BEAKER) (test code = 430) MONOCYTES RELATIVE PERCENT 9 % (BEAKER) (test code = 431) EOSINOPHILS RELATIVE PERCENT 3 % (BEAKER) (test code = 432) BASOPHILS RELATIVE PERCENT 1 % (BEAKER) (test code = 437) NEUTROPHILS ABSOLUTE COUNT 3.90 K/ L 1.56-6.13 (BEAKER) (test code = 670) LYMPHOCYTES ABSOLUTE COUNT 1.75 K/ L 1.18-3.74 (BEAKER) (test code = 414) MONOCYTES ABSOLUTE COUNT (BEAKER) 0.57 K/ L 0.24-0.36 H (test code = 415) EOSINOPHILS ABSOLUTE COUNT 0.19 K/ L 0.04-0.36 (BEAKER) (test code = 416) BASOPHILS ABSOLUTE COUNT (BEAKER) 0.07 K/ L 0.01-0.08 (test code = 417) IMMATURE GRANULOCYTES-RELATIVE 0 % 0-1 PERCENT (BEAKER) (test code = 2801) TISSUE [id number] 09:53:00Surgical Pathology Report Case: [id number] Authorizing Provider: Dayna Blackburn MD Collected:12/17/2019 10:13 AM Ordering Location: [facility] Endoscopy Received: 12/17/2019 12:16 PM Services Pathologist: Katelyn Zepeda MD Specimen: Stomach, Random Stomach Bx STOMACH, RANDOM BIOPSY: - MILD CHRONIC GASTRITIS WITH REACTIVE CHANGE - NO HELICOBACTER PYLORI MICROORGANISMS IDENTIFIED Signing Pathologist Direct Phone Line: [phone] signed by Katelyn Zepeda MD on 12/19/2019 at 9:53 [facility] /[id number] exam: chest painRandom stomach biopsyA. Received in formalin labeled with the patient's name, medical record number and "stomach" are three pieces of jones-pink mucosal-covered tissue that measure 0.7 x 0.4 x 0.2 cm in aggregate. The specimen is submitted in toto following filtration in cassette A1. DLR/pl Performed The interpretation of this case included the use of immunohistochemistry or special stains.Control Slides Examined: In-house known positive controls were evaluated alongwith the test tissue. These control slides run alongside of the patients sample show appropriate staining. Internal positive and negative controls when available are evaluated Immunohistochemistry technical testing was performed at [facility], Pathology Laboratory where it was developed and its performance characteristics were determined. It has not been cleared or approved by the [place]. Food and Drug Administration. The FDA has determined that such clearance or approval is not ne cessary. The test is used for clinical purposes. It should not be regarded as investigational or forresearch. This laboratory is certified under the Clinical Laboratory Improvement Amendments of 1988 (CLIA-88) as qualified to perform high complexity clinical laboratory testing.SARS-COV2/RT-PCR ([facility]) 2019-12-15 18:20:00 Test Item Value Reference Range Interpretation Comments SARS-COV2/RT-PCR (test Negative Not Detected, Negative, code = 0435816) See external report for linked test SARS-COV-2 PERFORMING LAB [facility] (test code = [id number]) Negative result for this test determines that SARS-CoV-2 RNA was not present in the specimen above the Limit of Detection (LOD). However, Negative results do not preclude SARS-CoV-2 infection and should not be used as the sole basis for treatment or patient management decisions. Negative results must be combined with clinical observations, patient history, and epidemiological information. A false negative result may occur if a specimen is improperly collected, transported or handled. A false negative result should be considered if patient's recent exposures or clinical presentation indicate that COVID-19 (SARS-CoV-2) is likely and diagnostic tests for other causes of illness are negative. Re-testing should be considered in cases of suspected false negatives.The limit of detection for this assay is 800 copies/mL.This SARS CoV-2 test is a real-time RT-PCR test intended for the qualitative detection of nucleic acid from SARS-CoV-2 in a nasopharyngeal swab specimen collected from individuals suspected of COVID-19 by their healthcare provider.This test has not been Food and Drug Administration (FDA) cleared or approved. This is a modified version of an approved Emergency Use Authorization (EUA) and is in the process of review by the FDA. Once authorized by the FDA, the issued EUA will be effective until the declaration that circumstances exist justifying the authorization of the emergency use ofin vitro diagnostic tests for detection and/or diagnosis of COVID-19 is terminated under Section 564(b)(2) of the Act or the EUA is revoked under Section 564(g) of the Act.Fact Sheet for Healthcare Prov iders:https://www.[employer]com/sites/default/files/product/documents/Fact_Sheet_HC _Bjnaxskrd_Ixgg_FOWS-JhQ-5.pdfFact Sheet for Healthcare Patients:https://www.[employer]com/sites/default/files/product/docume nts/Fbnt_Hnnxt_Awltowuo_Fvne_VOLY-ImN-2.pdfPerforming Laboratory:[facility], [place] [address]BKJN-EgX-2 (COVID-19) RNA [Presence] in Respiratory specimen by CAMI with probe [id number] 05:53:47 Test Item Value Reference Range Interpretation Comments SARS-CoV-2 (COVID-19) RNA Not detected Not-Detected [Presence] in Respiratory specimen by CAMI with probe detection (test code = 64843-9) SHASHA RODRIGUEZ WEST Notes Date/Time Note Provider Source 2020-01-[address] [facility] 21:37:37-00:00 OPERATIVE/PROCEDURE REPORT KEILY NGUYEN FACILITY: [facility] Billing #: [id number] Room: [address] [place] [address] MR #: [id number] : 1960 DATE OF PROCEDURE: 01/26/2020 SURGEON: Ron Paz MD PREOPERATIVE DIAGNOSES: 1. Gastroesophageal reflux disease. 2. Type 1 hiatal hernia. 3. Hypertension. 4. Rheumatoid arthritis. 5. Hyperlipidemia. POSTOPERATIVE DIAGNOSES: 1. Gastroesophageal reflux disease. 2. Type 1 hiatal hernia. 3. Hypertension. 4. Rheumatoid arthritis. 5. Hyperlipidemia. NAME OF OPERATION: 1. Flexible esophagogastroduodenoscopy. 2. Robot-assisted laparoscopic hiatal hernia rep air with mesh and near Eli fundoplication. 3. Right pleural pigtail catheter placement. ASSISTANTS: 1. Kate Jaquez MD (4th year General Surgery reside nt). 2. Min Burger CSA. SPECIMENS: None. ANESTHESIA: General endotracheal anesthesia. ESTIMATED BLOOD LOSS: 20 mL. COMPLICATIONS: None. DRAINS: 8.3-Angolan right pleural pigtail cathete r. FLUIDS: 2200 mL crystalloid. OPERATIVE FINDINGS: 1. Flexible esophagogastroduodenoscopy was notab le for a 2 cm hiatal hernia and LA grade B esophagitis in the distal esophagus. 2. I performed a robot-assisted laparoscopic hia wisam hernia repair. The esophagus was circumferentially mobi lized into the mediastinum to above the level of the inferior p ulmonary veins. 3. The hiatus was repaired primarily using two i nterrupted 0 Ethibond sutures posteriorly and two interrupted 0 Ethibond sutures anteriorly. The medial border of the rig ht crural pillar was denuded of its peritoneal lining whil e trying to expose high in the mediastinum to achieve suffic ient intraabdominal length. Consequently, I reinforce d the repair with a piece of Phasix ST mesh cut in a U-shaped configuration around the hiatus. 4. The patient had 3 cm of true intraabdominal e sophagus without tension. Consequently, a Juan Antonio gastropl asty was not required. 5. At the end of the dissection, both the anteri or and posterior vagus nerves were identified and were intact. 6. I performed a 2.5 cm partial posterior (near Eli) fundoplication over a 54-Angolan bougie. The fund oplication was constructed between the distal esophagus and vag us nerves and secured in place using two 2-0 Ethibond sutures between the line of the short gastrics and distal esophagus on the side of the fundoplication. 7. Near the level of the right inferior pulmonar y vein, the pleural space was opened. Consequently, at the e nd of the operation I left an 8.3-Angolan pigtail catheter. OPERATIVE INDICATIONS: Ms. Nguyen is a 59-year-old woman with a 20-year history of gastroesophageal reflux disea se, which has worsened over the last 10 years. She complains o f heartburn, regurgitation, and nocturnal symptoms despite sl eeping upright. H2 blockers provide partial symptom relief, but she requires frequent antacids for breakthrough symptoms. Due to osteoporosis, her use of PPIs is limited. Conseq uently, she sought further evaluation for laparoscopic antir eflux surgery. Her evaluation included an esophagram, which dem onstrated a small hiatal hernia. Esophageal manometry demons trated preserved peristalsis. A Mcintosh pH study was posi tive (DeMeester score, 14.9). The patient has preserv ed esophageal peristalsis, she was concerned about bloating wi th a Eli fundoplication and was not interested in magneti c sphincter augmentation. Consequently, the operative plan i s a partial fundoplication. After discussing the risks and b enefits of the procedure, the patient provided informed consent for a flexible esophagogastroduodenoscopy, robot-assisted lapar oscopic hiatal hernia repair, near Eli fundoplication, possi ble Juan Antonio gastroplasty, and possible pleural pigtail madeleine ter placement. DESCRIPTION OF PROCEDURE: On 01/26/2020, the pat ient was brought to the operating room and placed supine on the operating room table. Following an uneventful in duction of general anesthesia, she was intubated without in cident. A radial arterial line and additional peripheral I Vs were placed by the anesthesia team. A Russell catheter was ins erted. Pneumatic compression devices were placed on his lower extremities. A foot board was placed. Both arms were tucked. All bony prominences were well padded. She recei jennyfer Ancef for intravenous antibiotic prophylaxis and 5000 unit s of subcutaneous heparin for DVT prophylaxis. Prior to beginning the operation, a time-out was conducted with all members of the surgical team present. I began performing flexible esophagogastroduoden oscopy. Flexible endoscope was placed in oropharynx and was advanced down the proximal esophagus under direct vision. The cricopharyngeus was located at 35 cm and diaphra gmatic pinch was located at 37 cm consistent with a 2 cm hiat al hernia. LA grade B esophagitis was noted in the distal e sophagus. There was no Badillo esophagus or other mucosal abnormalities. The endoscope was advanced to stomach and retrof lexed. I did not fully insufflate the stomach to accurately a ssess the Hill valve grade due to concern that excessive insuff lation could make the laparoscopic repair more challenging. T he stomach otherwise appeared normal. The pylorus was alicia l. The 1st and 2nd portions of the duodenum were normal. Th e duodenum, stomach, and esophagus were evacuated free of ai r and debris. The endoscope was removed. Her lower chest and abdomen were prepped and kaylie ped in usual sterile fashion. After infiltrating the skin wit h local anesthetic, I made a stab incision a fingerbread th below the left costal margin. A Veress needle was inserted and pneumoperitoneum to 15 mmHg was achieved without incident. After infiltrating the skin with local anestheti c, I made an 8 mm transverse incision just to the left of midli ne, 18 cm caudal to the tip of xiphoid process. The perito rain cavity was entered without incident through this incisi on via an 8 mm Optiview trocar. Next, I placed my additional ro botic ports. All ports were placed parallel to one another an d perpendicular to the midline axis after infiltrating the perit oneum and subcutaneous tissues with local anesthetic. An 8 mm (arm 4) port was placed laterally in the left abdomen. A n 8 mm (arm 3) port was placed midway between arm 2 and arm 4 p orts. An 8 mm (arm 1) port was placed in the right mid abdomen . The patient was positioned in steep reverse Trendelenburg. A 5 mm trocar was placed in the lateral aspect of the right up per quadrant. A self-retaining retractor was inserted through this trocar to facilitate exposure of the hiatus. The robot was docked in standard fashion. All instruments were inserted under direct vision. I turned my attention to the upper abdomen. A sm all hiatal hernia was noted. I began the dissection by luz elena grover down the gastrohepatic ligament directly above the caudat e lobe in an avascular plane using the vessel sealer. There w as a small accessory hepatic vessel which I partially skele tonized with vessel sealer. I then placed a hemalock and assu red its lack of significance in providing hepatic blood flow before it was divided. I then turned my attention to the g reater curvature. I entered the lesser sac just cephala d to the proximal extent of the right gastroepiploic pedi marisela. I took down the short gastrics all the way to the angle of His. Attachments between the fundus and left hemidiap hragm were taken down using a vessel sealer. I then began t o define the medial border of the left crural pillar using bl unt dissection and energy with vessel sealer taking care to pre serve the peritoneal integrity of the josseline by sweeping it laterally. After approximately 10 to 15 minutes, I turned m y attention back to the left lobe of the liver. There was no evidence of ischemia. Consequently, the aforemen tioned accessory hepatic vessel was divided. I continue d the dissection towards the base of the right josseline. I then defined the medial border of the right crural pillar sia grover blunt dissection and energy with vessel sealer taking care to preserve the peritoneal integrity of the josseline by sweeping it laterally. I worked up and over the apex of the hiatus taking down the phrenoesophageal ligament and sweeping the anterior vagus nerve posteriorly. While working from pleu ra to pleura in a well-defined areolar soft tissue plane ante riorly, I mobilized the esophagus using the vessel sealer taking care to identify and preserve the anterior vagus nerve. I turned my attention back to the lesser curvature and ident ified the decussation of the crural pillars. I encircled t he distal esophagus with a half-inch Butler drain to faci litate exposure. I then readily entered an area of soft tissue plane between the aorta and paraesophageal soft tissue s and continued to mobilize the esophagus posteriorly. While wor jake within a well-defined areolar plane, I circumferentially mobilized the esophagus to the level of inferior pulmonary vei ns using the vessel sealer. Next, I turned my attention to identifying the t rue gastroesophageal junction. The gastroesophageal junction fat pad was taken down off the distal esophagus and gastric cardia by working on the patient's right to left and ro tating the fat pad towards the patient's right. A retroesophage al window was created between the distal esophagus and vagus n erves. The true angle of His was identified. There was init ially approximately 1-2 cm of true external esophagus without tension. Consequently, I further mobilized the esophagus and mediastinum to above the level of inferior pulmonary veins. Near the level of the right superior pulmonary vein, the right pleural space was opened while dissecting it free from the pos terior vagus nerve. The resultant capnothorax resulted in mil d hypotension. Consequently, I placed a 5 mm trocar to vent th e pleural space. After infiltrating the skin with local anestheti c, I made a 5 mm transverse incision two fingerbreadths below the right inframammary crease in the clavicular line. Usin g blunt tonsil dissection directly over the rib, the pleural sp aaliyah was entered and a 5 mm trocar was inserted. The intrapleural placement was confirmed with a 5 mm thoracoscope. The port was then utilized to vent the pleural space for the remainder of t he operation. I reinspected the angle of His and noted approxi mately 3 cm of true external esophagus without tension. Consequ ently, a Juan Antonio gastroplasty was not required. At the end of the dissection, both the anterior vagus and posterio r vagus nerves were identified and appeared intact. Next, I turned my attention to repairing the hia tus. The hiatus was repaired primarily using two interrup geovanny 0 Ethibond sutures posteriorly and two interrupted 0 Ethibo nd sutures anteriorly. While trying to expose high in the m ediastinum through the patient's rather narrow hiatus, the medial border of the right crural pillar was denuded of its pe ritoneal lining. Consequently, I elected to reinforce the hernia repair with mesh. A piece of Phasix ST mesh was cut to dimensions of the hiatus with a U-shaped configuration around the esophagus taking care to keep the mesh from touching the e sophagus. The mesh was tacked around the hiatus at the 1, 4, 7 , 11 o'clock positions using 2-0 silk sutures. Additional 2-0 silk sutures were placed laterally to assure that the mesh la id appropriately against the diaphragm. When placin g the mesh, care was taken to assure that the Hydrogel layer was facing the peritoneal cavity. The hiatus was inspected and noted to be neither too constricted nor too patulous. Next, I performed a partial posterior fundoplica tion. A 54-Angolan bougie was advanced down the esophagus in the stomach under laparoscopic visualization. I grasped the fundus at the line of short gastrics and delivered it posterio r to the esophagus between the esophagus and vagus nerves . The line of short gastrics was aligned on either side of the distal esophagus. A drop test was performed. A shoeshin e maneuver was performed to assure the absence of rotationa l torsion. I then constructed a 2.5 cm partial posterior (odilia r Eli) fundoplication. The fundoplication was secured i n place using two 2-0 Ethibond sutures between the line of the short gastrics and distal esophagus on other side of the fundop lication. The bougie was removed. The laparoscopic instrument easily advanced between the distal esophagus and fundop lication. The robot was undocked. Repeat endoscopy was per formed. A flexible endoscope was re-advanced in the esopha john under direct vision. The endoscope passed easily throu gh the hiatus and the stomach. Upon retroflexion, I noted a pa rtial "stack of coins" appearance consistent with a subdiaphr agmatic fundoplication. The endoscope was advanced. The duodenum, stomach, and esophagus were evacuated free of ai r and debris. A nasogastric tube was advanced in the stomach u nder laparoscopic and endoscopic visualization. The e ndoscope was removed. The self-retaining retractor was removed under d irect vision. The abdomen was irrigated. Hemostasis was assure d. Pneumoperitoneum was evacuated. The ports were r emoved. The port sites were infiltrated with additional loca l anesthetic. The subdermal tissues were closed using 2-0 Vicr yl suture. The skin incisions were closed using 4-0 Monocryl bryan bcuticular sutures. Due to the patient's adhesive allergy, Dermabond was applied. After confirming that the right inframammary tro car was still within the pleural space, I advanced a guidewire through the trocar, removed the trocar over the guidewire, a nd advanced a 8.3-Angolan pigtail catheter over the guidewire a nd into the pleural space. The pigtail catheter was secured to the skin using 2-0 silk suture connected to a Pleur-evac. A dry sterile dressing was applied. The sponge, needle, and instrument counts were c orrect at the end of the operation. The patient was awakened f rom anesthesia, was extubated without incident, and was transported to the postanesthesia care unit in stable condit ion. MEDICARE ATTESTATION STATEMENT: I, Dr. Ron harris, was the attending physician. I was present for the criti deepa portions of the operation. Please note that Dr. Jaquez is a [facility] Surgery resident, who participated in this operation. /TOM /[id number]
[2022-11-01] MEDS ORDERED: NA CHLORIDE 0.9% 1,000 ML ONE ×2 (11:13→16:28)
[2022-11-01] MEDS ORDERED: HYDROMORPHONE HCL 1 MG/ML INJ ONE (11:13)
[2022-11-01] MEDS ORDERED: ONDANSETRON 4 MG/2 ML VIAL ONE ×4 (11:13→16:12)
[2022-11-01 11:23] LABS: Absolute Lymphocytes (CBC) 1.1 K/uL (0.7-4.9); Hematocrit 44.5 % (36.0-45.0); Lymphocytes % 8.4 % (15.3-44.8); MPV 9.2 fL (7.6-11.3); Platelets 203 thou/uL (152-406); RBC Red Blood Cell Count 4.79 M/uL (3.86-4.86)
[2022-11-01 11:30] LABS: Specific Gravity 1.022 (1.005-1.030); Urine Bacteria None Seen /HPF (<20); Urine Bilirubin NEGATIVE (Negative); Urine Blood Negative (Negative); Urine Clarity Clear (Clear); Urine Color Light-Yellow (Yellow); Urine Glucose TRACE (Negative); Urine Mucus Slight /HPF (None Seen); Urine Protein 1+ (Negative); Urine RBC <5 /HPF (None Seen); Urine Urobilinogen Normal (Normal); Urine pH 5.5 (5.0-7.0)
[2022-11-01 11:41] LABS: Bilirubin Total 0.6 mg/dL (0.2-1.0); Potassium 3.8 mEq/L (3.5-5.1); Protein, Total 7.4 g/dL (6.4-8.2); Troponin High Sensitivity 28.5 pg/mL (<58.9)
[2022-11-01 12:06] LABS: Blood Morphology Comment NOT SEEN (NOT SEEN); Platelet Estimate ADEQ; White Blood Cell Scan OK (OK)
--- NOTE | 2022-11-01 12:12 | RAD REPORT ---
EXAM DESCRIPTION: CT - Abdomen Pelvis W Contrast - 11/01/2022 12:00 pm CLINICAL HISTORY: ABD PAIN COMPARISON: Abdomen Pelvis W Contrast dated 01/15/2019 TECHNIQUE: Thin cut axial CT imaging of the abdomen and pelvis was performed following intravenous a dministration of 100 mL Isovue 300. Multiplanar reformats were generated and reviewed. All CT scans are performed using dose optimization technique as appropriate and may include automated exposure control or mA/KV adjustment according to patient size. FINDINGS: No suspicious findings in the lung bases. Mild left more than the right bibasilar atelecta sis. The liver, spleen, and pancreas show no suspicious findings. Gallbladder is distended with mild wall prominence and suggestion of mild wall edema. No pericholecystic fluid or evidence of calculi. No int ra or extrahepatic biliary ductal dilation. Symmetric renal function is seen with no hydronephrosis or suspicious renal mass. No dilated bowel loops or bowel wall thickening. Mild colonic diverticulosis. Appendix is unremarkabl e. No free air, free fluid or inflammatory stranding. No hernia, mass or bulky lymphadenopathy. The u rinary bladder is without significant finding. No suspicious bony findings. IMPRESSION: Gallbladder distention with mild wall prominence and suggestion of mild wall edema. Plea se correlate clinically for evidence of acute cholecystitis.
[2022-11-01] MEDS ORDERED: KETOROLAC 30 MG/ML INJ ONE (12:18)
--- NOTE | 2022-11-01 13:07 | RAD REPORT ---
EXAM DESCRIPTION: US - Abdomen Exam Limited - 11/01/2022 12:45 pm CLINICAL HISTORY: Abdominal pain. COMPARISON: CT November 01, 2022 FINDINGS: Multiple gallstones. Gallbladder is distended. Gallbladder wall is not thickened. The biliary tree is normal caliber. IMPRESSION: Cholelithiasis with gallbladder distention
--- NOTE | 2022-11-01 13:33 | EDPHYS ---
Physician Documentation [facility] Name: Keily Darling Age: 62 yrs Sex: Female : 1960 Arrival Date: 11/01/2022 Time: 10:39 Bed 18 Private MD: ED Physician Luis Stoddard HPI: 11/01 10:56 This 62 yrs old Female presents to ER via Unassigned with complaints of sp3 Abdominal Pain, Nausea, Back Pain. 10:56 62-year-old female with a history of hyperlipidemia, hypertension presents to the ED sp3 with 6 hours of epigastric abdominal pain. Patient also has a history of Eli fundoplication performed several years ago for esophageal reflux. No other surgical history noted. Patient complains of nonbilious, nonbloody emesis x3 and 1 episode of diarrhea nonbloody non-mucous as well. Pain is described as sharp in nature 8 out of 10 in the epigastric region. Pain radiates to her back. On review of systems she denies headache, fever, URI symptoms, neck pain, chest pain, shortness of breath, lower abdominal pain, lower back pain, extremity pain, syncope, neurological symptoms, any other signs or symptoms on ROS at this time.. Historical: - Allergies: 10:59 No Known Allergies; ap3 - PMHx: 10:59 Hypertensive disorder; Hypercholesterolemia; ap3 - PSHx: 10:59 fundoplication; ap3 - Social history:: Smoking status: Patient denies any tobacco usage or history of. Patient uses alcohol, occasionally. ROS: 10:59 Constitutional: Negative for fever, chills, and weight loss, Eyes: Negative for injury, sp3 pain, redness, and discharge, ENT: Negative for injury, pain, and discharge, Neck: Negative for injury, pain, and swelling, Cardiovascular: Negative for chest pain, palpitations, and edema, Respiratory: Negative for shortness of breath, cough, wheezing, and pleuritic chest pain, Back: Negative for injury and pain, MS/Extremity: Negative for injury and deformity, Skin: Negative for injury, rash, and discoloration, Neuro: Negative for headache, weakness, numbness, tingling, and seizure, Psych: Negative for depression, anxiety, suicide ideation, homicidal ideation, and hallucinations, Allergy/Immunology: Negative for hives, rash, and allergies, Endocrine: Negative for neck swelling, polydipsia, polyuria, polyphagia, and marked weight changes, Hematologic/Lymphatic: Negative for swollen nodes, abnormal bleeding, and unusual bruising. 10:59 All other systems are negative. Exam: 10:59 Constitutional: This is a well developed, well nourished patient who is awake, alert, sp3 and in no acute distress. Head/Face: Normocephalic, atraumatic. Eyes: Pupils equal round and reactive to light, extra-ocular motions intact. Lids and lashes normal. Conjunctiva and sclera are non-icteric and not injected. Cornea within normal limits. Periorbital areas with no swelling, redness, or edema. Neck: Trachea midline, no thyromegaly or masses palpated, and no cervical lymphadenopathy. Supple, full range of motion without nuchal rigidity, or vertebral point tenderness. No Meningismus. Chest/axilla: Normal chest wall appearance and motion. Nontender with no deformity. No lesions are appreciated. Cardiovascular: Regular rate and rhythm with a normal S1 and S2. No gallops, murmurs, or rubs. Normal PMI, no JVD. No pulse deficits. Respiratory: Lungs have equal breath sounds bilaterally, clear to auscultation and percussion. No rales, rhonchi or wheezes noted. No increased work of breathing, no retractions or nasal flaring. Back: No spinal tenderness. No costovertebral tenderness. Full range of motion. Skin: Warm, dry with normal turgor. Normal color with no rashes, no lesions, and no evidence of cellulitis. MS/ Extremity: Pulses equal, no cyanosis. Neurovascular intact. Full, normal range of motion. Neuro: Awake and alert, GCS 15, oriented to person, place, time, and situation. Cranial nerves II-XII grossly intact. Motor strength 5/5 in all extremities. Sensory grossly intact. Cerebellar exam normal. Normal gait. Psych: Awake, alert, with orientation to person, place and time. Behavior, mood, and affect are within normal limits. 10:59 Abdomen/GI: Epigastric pain noted without peritoneal signs, rebound or guarding.. 12:06 ECG was reviewed by the Attending Physician. EKG demonstrates sinus bradycardia at 54 sp3 bpm with normal axis, normal QRS, normal intervals, nonspecific diffuse ST/T changes without evidence of acute ischemia. Vital Signs: 10:58 Pulse 57; Resp 17; Temp 97.9; Pulse Ox 96% ; Weight 83.91 kg; Height 5 ft. 4 in. ; Pain ap3 10/10; 11:17 BP 187 / 93; ld1 11:17 Pulse 62; Resp 18; Pulse Ox 90% ; ld1 11:18 Pulse Ox 93% on R/A; ld1 11:20 Pulse Ox 90% ; ld1 11:20 Pulse Ox 100% on 3 lpm NC; ld1 12:10 BP 169 / 90; Pulse 69; Resp 18; Pulse Ox 100% on 2 lpm NC; ld1 13:32 BP 159 / 76; Pulse 71; Resp 18; Pulse Ox 100% on R/A; ld1 10:58 Body Mass Index 31.75 (83.91 kg, 162.56 cm) ap3 10:58 Pain Scale: Adult ap3 MDM: 10:50 Patient medically screened. sp3 11:00 Data reviewed: vital signs, nurses notes, lab test result(s), EKG, radiologic studies. sp3 ED course: 62-year-old female with PMH above and status post Eli fundoplication now presents with epigastric pain. Differential diagnosis includes long-term surgical complication, cholecystitis, biliary colic, gastritis, peptic ulcer disease, pancreatitis, choledocholithiasis, general colitis of the transverse colon, and to a lesser degree acute coronary syndrome, aortic dissection or aneurysm, among others. Patient is not septic and has normal vital signs. Will obtain laboratory values, urine analysis, CT scan of the abdomen pelvis to differentiate and administer normal saline, Dilaudid, Zofran IV for symptomatic control. Disposition is pending work-up and patient course with possible admission if significant pathology is found.. 13:32 ED course: Work-up shows cholelithiasis with distended gallbladder and mild gallbladder sp3 wall thickening with normal biliary tree diameters. We will start Zosyn IV and keep patient n.p.o. for surgical assessment.. 11/01 10:56 Order name: CBC with Diff; Complete Time: 12:17 sp3 11/01 10:56 Order name: CMP; Complete Time: 12:01 sp3 11/01 10:56 Order name: Lipase; Complete Time: 12: sp3 11/01 10:56 Order name: Urinalysis w/ reflexes; Complete Time: 12:01 sp3 11/01 10:56 Order name: Troponin High Sensitivity; Complete Time: 12:01 sp3 11/01 12:06 Order name: CBC Smear Scan; Complete Time: 12:17 EDMS 11/01 10:56 Order name: CT Abd/Pelvis - IV Contrast Only; Complete Time: 12:17 sp3 11/01 12:19 Order name: US Abdomen Limited; Complete Time: 13:10 sp3 11/01 10:56 Order name: EKG; Complete Time: 10:57 sp3 11/01 10:56 Order name: IV Saline Lock; Complete Time: 11:17 sp3 11/01 10:56 Order name: Labs collected and sent; Complete Time: 11:17 sp3 11/01 10:56 Order name: EKG - Nurse/Tech; Complete Time: 11:17 sp3 11/01 10:56 Order name: NPO; Complete Time: 10:56 sp3 Administered Medications: 11:17 Drug: NS 0.9% IV 1000 ml Route: IV; Rate: 1 bolus; Site: right antecubital; ld1 11:17 Drug: Ondansetron IVP 4 mg Route: IVP; Site: right antecubital; ld1 11:17 Drug: HYDROmorphone IVP 1 mg Route: IVP; Site: right antecubital; ld1 12:09 Drug: Ondansetron IVP 4 mg Route: IVP; Site: right antecubital; ld1 12:10 Drug: Ketorolac IVP 30 mg Route: IVP; Site: right antecubital; ld1 Disposition Summary: 11/01/22 13:33 Hospitalization Ordered Hospitalization Status: Observation sp3 Provider: Carloz Coleman sp3 Location: Telemetry/MedSurg (observation) sp3 Condition: Stable sp3 Problem: new sp3 Symptoms: have worsened sp3 Bed/Room Type: Standard sp3 Room Assignment: sp3 Diagnosis - Cholecystitis, unspecified sp3 Discharge Instructions: - Discharge Summary Sheet bd Forms: - SBAR form bd - Medication Reconciliation Form sp3 - Leadership Thank You Letter sp3 Signatures: Dispatcher [employer] Elaine Bradford RN RN ap3 Chio Gamble RN RN ld1 Luis Stoddard, MD sp3
--- NOTE | 2022-11-01 13:33 | ER ---
Nurse's Notes [facility] Name: Keily Darling Age: 62 yrs Sex: Female : 1960 Arrival Date: 11/01/2022 Time: 10:39 Bed 18 Private MD: Diagnosis: Cholecystitis, unspecified Presentation: 11/01 10:58 Chief complaint: Patient states: she started having nausea and vomiting this morning. ap3 patient reports mid upper abdominal pain and back pain as well. patient states her pain is currently a 10/10 on the pain scale. Coronavirus screen: At this time, the client does not indicate any symptoms associated with coronavirus-19. Ebola Screen: No symptoms or risks identified at this time. Initial Sepsis Screen: Does the patient meet any 2 criteria? No. Patient's initial sepsis screen is negative. Does the patient have a suspected source of infection? Yes: Acute abdominal pain. Risk Assessment: Do you want to hurt yourself or someone else? Patient reports no desire to harm self or others. Onset of symptoms was November 01, 2022. 10:58 Method Of Arrival: Ambulatory ap3 10:58 Acuity: BOB 3 ap3 Triage Assessment: 10:59 General: Appears ill, Behavior is cooperative, appropriate for age. Pain: Complains of ap3 pain in back and abdomen Pain currently is 10 out of 10 on a pain scale. Pain began today. Neuro: Level of Consciousness is awake, alert, obeys commands, Oriented to person, place, time, situation, Appropriate for age Gait is steady. Cardiovascular: Patient's skin is warm and dry. Respiratory: Airway is patent Respiratory effort is even, unlabored, Respiratory pattern is regular, symmetrical. GI: Pt is actively vomiting Reports upper abdominal pain, nausea, vomiting. Historical: - Allergies: 10:59 No Known Allergies; ap3 - PMHx: 10:59 Hypertensive disorder; Hypercholesterolemia; ap3 - PSHx: 10:59 fundoplication; ap3 - Social history:: Smoking status: Patient denies any tobacco usage or history of. Patient uses alcohol, occasionally. Screenin:00 [facility] ED Fall Risk Assessment (Adult) History of falling in the last 3 months, ap3 including since admission No falls in past 3 months (0 pts). Abuse screen: Denies threats or abuse. Nutritional screening: No deficits noted. Tuberculosis screening: No symptoms or risk factors identified. Assessment: 11:00 GI: Abd is soft X 4 quads Abdomen is tender to palpation in epigastric area. ap3 11:16 GI: Bowel sounds present X 4 quads. ld1 11:19 Reassessment: Post medication administration - pt SpO2 decreased to 90% RA. Placed pt ld1 on NC at 3lpm. Vital Signs: 10:58 Pulse 57; Resp 17; Temp 97.9; Pulse Ox 96% ; Weight 83.91 kg; Height 5 ft. 4 in. ; Pain ap3 10/10; 11:17 BP 187 / 93; ld1 11:17 Pulse 62; Resp 18; Pulse Ox 90% ; ld1 11:18 Pulse Ox 93% on R/A; ld1 11:20 Pulse Ox 90% ; ld1 11:20 Pulse Ox 100% on 3 lpm NC; ld1 12:10 BP 169 / 90; Pulse 69; Resp 18; Pulse Ox 100% on 2 lpm NC; ld1 13:32 BP 159 / 76; Pulse 71; Resp 18; Pulse Ox 100% on R/A; ld1 10:58 Body Mass Index 31.75 (83.91 kg, 162.56 cm) ap3 10:58 Pain Scale: Adult ap3 ED Course: 10:42 Patient arrived in ED. mr 10:43 Luis Stoddard MD is Attending Physician. sp3 10:52 Chio Gamble, PATSY is Primary Nurse. ld1 10:59 Triage completed. ap3 11:00 Arm band placed on right wrist. ap3 11:01 Patient has correct armband on for positive identification. Bed in low position. Call ap3 light in reach. Side rails up X2. Adult w/ patient. Pulse ox on. NIBP on. 11:16 No provider procedures requiring assistance completed. Inserted saline lock: 20 gauge ld1 in right antecubital area, using aseptic technique. Blood collected. 11:17 Troponin High Sensitivity Sent. ld1 11:17 CBC with Diff Sent. ld1 11:17 CMP Sent. ld1 11:17 Lipase Sent. ld1 11:17 Urinalysis w/ reflexes Sent. ld1 12:02 CT Abd/Pelvis - IV Contrast Only In Process Unspecified. EDMS 12:47 US Abdomen Limited In Process Unspecified. EDMS 13:32 Carloz Coleman MD is Hospitalizing Provider. sp3 13:33 Patient admitted, IV remains in place. ld1 Administered Medications: 11:17 Drug: NS 0.9% IV 1000 ml Route: IV; Rate: 1 bolus; Site: right antecubital; ld1 11:17 Drug: Ondansetron IVP 4 mg Route: IVP; Site: right antecubital; ld1 11:17 Drug: HYDROmorphone IVP 1 mg Route: IVP; Site: right antecubital; ld1 12:09 Drug: Ondansetron IVP 4 mg Route: IVP; Site: right antecubital; ld1 12:10 Drug: Ketorolac IVP 30 mg Route: IVP; Site: right antecubital; ld1 Medication: 11:00 VIS not applicable for this client. ap3 Outcome: 13:33 Decision to Hospitalize by Provider. sp3 13:33 Admitted to OR ld1 13:33 Condition: stable 13:33 Discharge instructions given to patient, Instructed on the need for admit, Demonstrated understanding of instructions, follow-up care. 13:33 Patient left the ED. ld1 Signatures: Dispatcher [employer] EDW[facility] Pau Garza mr KaitlyndebraElaine RN RN ap3 Chio Gamble RN RN ld1 Luis Stoddard MD MD sp3
[2022-11-01] MEDS ORDERED: BUPIVACAINE 0.5% PF 10 ML VIAL ONE (13:39)
[2022-11-01] MEDS ORDERED: Ringers Lactate 1,000 ML IV ONE (13:58)
[2022-11-01] MEDS ORDERED: ACETAMINOPHEN 650MG/RECT SUPP PR PRN (14:05)
[2022-11-01] MEDS ORDERED: propofoL 200 MG/20 ML VIAL IV ONE ×2 (14:13→14:50)
[2022-11-01] MEDS ORDERED: FENTANYL CITR 100 MCG/2 ML ONE (14:14)
[2022-11-01] MEDS ORDERED: ROCURONIUM 50 MG/5 ML VIAL IV ONE ×2 (14:14→14:59)
[2022-11-01] MEDS ORDERED: ONDANSETRON 4 MG/2 ML VIAL IV PRN (14:15)
[2022-11-01] MEDS ORDERED: LIDOCAINE 2% MPF 5 ML VIAL ONE (14:15)
[2022-11-01] MEDS ORDERED: PIPER TAZO 3.375 GM in NA CHLORIDE 0.9% 100 ML IV ONE (14:15)
[2022-11-01] MEDS ORDERED: MIDAZOLAM HCL 2 MG/2 ML INJ ONE (14:15)
--- NOTE | 2022-11-01 14:20 | P.HP ---
Certification for Inpatient Patient admitted to: Observation With expected LOS: <2 Midnights Patient will require the following post-hospital care: None Practitioner: I am a practitioner with admitting privileges, knowledge of patient current condition, hospital course, and medical plan of care. Services: Services provided to patient in accordance with Admission requirements found in Title 42 Section 412.3 of the Code of Federal Regulations Patient History Date of Service: 11/01/22 Reason for admission: Abdominal pain. History of Present Illness: Patient is a 62-year-old female with a past medical history significant for hypertension, hyperlipidemia who presents with complaint of abdominal pain located in the epigastric area with radiation to the right upper quadrant onset this morning. Patient indicated that pain radiates to her back as well. Patient rated pain as 10/10 in severity and described pain as burning in quality. Patient reported associated signs and symptoms of chills, headache, nausea, vomiting and diarrhea x1 episode. Patient denies any other signs and symptoms. Symptoms are aggravated or relieved by nothing. Patient decided to present to the hospital due to worsening symptoms. Allergies No Known Allergies Allergy (Verified 11/01/22 17:31) Home Medications: Ezetimibe [Zetia] 10 mg PO DAILY 11/01/22 Nebivolol HCl [Bystolic] 5 mg PO DAILY 11/01/22 - Past Medical/Surgical History -: HTN -: HLD -: Fundoplication - Family History Family History: Reviewed- Non-Contributory - Social History Smoking Status: Never smoker Alcohol use: Yes CD- Drugs: No Caffeine use: No Place of Residence: Home Review of Systems General: Chills Eyes: Unremarkable ENT: Unremarkable Respiratory: Unremarkable Cardiovascular: Unremarkable Gastrointestinal: Nausea, Vomiting, Abdominal Pain, Diarrhea Genitourinary: Unremarkable Musculoskeletal: Back Pain Integumentary: Unremarkable Neurological: Other (WILLARD) Lymphatics: Unremarkable Physical Examination - Vital Signs Temperature: 97.9 F Blood Pressure: 159/76 Pulse: 71 Respirations: 18 - Physical Exam General: Alert, In no apparent distress, Oriented x3, Cooperative HEENT: Atraumatic, PERRLA, Mucous membr. moist/pink, EOMI, Sclerae nonicteric Neck: Supple, 2+ carotid pulse no bruit, No LAD, Without JVD or thyroid abnormality Respiratory: Clear to auscultation bilaterally, Normal air movement Cardiovascular: No edema, Regular rate/rhythm, Normal S1 S2 Capillary refill: <2 Seconds Gastrointestinal: Normal bowel sounds, Hypoactive, Tenderness Musculoskeletal: No clubbing, No swelling, No tenderness Integumentary: No rashes, No significant lesion Neurological: Normal speech, Normal tone, Normal affect Lymphatics: No axilla or inguinal lymphadenopathy - Studies Laboratory Data (last 24 hrs) 11/01/22 11/01/22 11:13 11:13 WBC 13.40 H Hgb 15.1 H Hct 44.5 Plt Count 203 Sodium 142 Potassium 3.8 BUN 16 Creatinine 0.88 Glucose 147 H Total Bilirubin 0.6 AST 19 ALT 27 Alkaline Phosphatase 74 Lipase 90 H Assessment and Plan - Plan --Acute cholecystitis. Abdominal ultrasound indicates cholelithiasis with gallbladder distention. Surgeon consulted. Plans to take patient to the OR for a laparoscopic cholecystectomy. Continue antibiotics. --Acute pain. We will manage pain with current pain medication regimen. --Nausea and vomiting. Antiemetics on board. Continue supportive care --Diarrhea. Patient reports a one-time episode of diarrhea. We will continue to monitor frequency and order stool studies if patient continues to have diarrh ea. Continue supportive care. --Hypertension. Poorly controlled. Continue home medications and hydralazine as needed. --Hyperlipidemia. Continue home medication. --Leukocytosis. Likely secondary to cholecystitis. Blood cultures pending. Continue antibiotics. --CKD 2. Baseline functions unknown. We will continue to monitor renal functions. --Headache. Tylenol as needed. --DVT prophylaxis with SCDs. Discharge Plan: Home Plan to discharge in: 48 Hours - Advance Directives Does patient have a Living Will: No Does patient have a Durable POA for Healthcare: No - Code Status/Comfort Care Code Status Assessed: Yes Physician Review: Patient Assessed, Agree with Above Assessment and Plan Critical Care: No
--- NOTE | 2022-11-01 14:24 | P.CNS ---
Date of Consult: 11/01/22 Reason for consult: Abdominal pain History of present illness: Patient is a 62-year-old female who presented to the emergency room with acute onset of epigastric and right upper quadrant abdominal pain radiating to the back associated with nausea, vomiting, bloating, belching and heartburn. Patient has never had pain like this before. Patient denies any diarrhea, constipation, blood per rectum, dysuria or hematuria. Patient had a laparoscopic Keny fundoplication 4 years ago. Patient denies any sore throat, runny nose, cough, headache, dizziness, chest pain, fever or chills. Review of systems: Otherwise unremarkable Past medical history: Hypertension, high cholesterol Past surgical history: Eli fundoplication and tonsillectomy Allergies: None Social history: Patient quit smoking several years ago, denies drinking Family history: Noncontributory Vital signs: Stable, afebrile Physical exam: Awake, alert and oriented x3 Head and neck exam: No icterus, no JVD, throat clear, neck supple and no neck masses Chest: Clear Heart: S1-S2 Abdomen: Soft, nondistended, positive bowel sounds, right upper quadrant ten derness with minimal rebound. No evidence of rigidity or guarding noted. Extremity: Neurovascular intact, nontender Neuro: Nonfocal Diagnostic data: CT of the abdomen pelvis and ultrasound reviewed. Findings consistent with acute cholecystitis and cholelithiasis with a normal biliary tree. White count is slightly elevated with a left shift. LFTs are within normal limits. Assessment: Acute cholecystitis and cholelithiasis Plan/recommendation: Admit, n.p.o., IV fluids and IV antibiotics. To the OR for laparoscopic cholecystectomy possible open. Patient understands risks, benefits and alternatives and agrees to procedure. CC:
[2022-11-01] MEDS ORDERED: SUGAMMADEX SODIUM 200 MG/2 ML VIAL IV ONE (15:02)
[2022-11-01] MEDS ORDERED: dexAMETHasone 10 MG/ML VIAL ONE (15:03)
[2022-11-01 15:04] LABS: Magnesium 1.9 mg/dL (1.6-2.4); Phosphorus 3.8 mg/dL (2.5-4.9)
[2022-11-01] MEDS ORDERED: GLYCOPYRROLATE 0.2 MG/ML SYR ONE ×2 (15:20→15:34)
[2022-11-01] MEDS ORDERED: KETAMINE HCL IN 0.9 % NACL 50 MG/5 ML SYRINGE IV ONE (15:20)
--- NOTE | 2022-11-01 15:28 | P.OP ---
Date of Service: 11/01/22 Preop diagnosis: Acute cholecystitis and cholelithiasis Postop diagnosis: Same Procedure performed: Laparoscopic cholecystectomy Surgeon: Denzel Perez MD Inside Sales Coordinator: Bonny IRWIN Estimated blood loss: Minimal Specimen: Gallbladder Findings: As above Anesthesia: General Complications: None Drains: None Fluids and blood products: Nonapplicable Disposition: Recovery room Operative note: Patient brought to the OR and placed in the supine position. General anesthesia begun. Patient prepped and draped in the usual sterile fashion. Marcaine 0.5% infiltrated locally. 15 blade used to make a 2 cm supraumbilical midline incision. Subcutaneous tissue divided. Bleeding controlled with cautery. Fascia identified and divided. #1 Vicryl stay suture placed. Peritoneal cavity entered with sharp and blunt dissection. 12 mm trocar placed into the peritoneal cavity under direct vision. Pneumoperitoneum established. Three 5 mm trocars placed under direct vision. 1 trocar placed in the epigastric region just to the right of midline. The other 2 trocars placed in the right subcostal region. Laparoscopy revealed a distended gallbladder with acute inflammation and omental adhesions. The gallbladder aspirated of clear bile consistent with acute cholecystitis. Then fundus retracted superiorly. Infundibulum identified and retracted inferolaterally. Omental adhesions taken down with sharp and blunt dissection. Bleeding controlled cautery. Cystic duct and cystic artery identified with blunt dissection. Clips placed and both structures divided. Cautery used to remove the gallbladder from the liver bed. Bleeding on the liver controlled with cautery. Gallbladder retrieved through the umbilicus via Endo Catch bag. Right upper quadrant irrigated. Effluent clear with no bleeding or bile leak is observed. All trocars removed under direct vision. Stay sutures tied to each other to reapproximate the fascial defect. Subcutaneous was irrigated. Bleeding controlled with cautery. 3-0 chromic used to approximate subcutaneous tissue and close skin. Sterile dressing applied. Patient awakened and taken to recovery room in good general condition. CC:
[2022-11-01] MEDS ORDERED: Mastisol Adhesive Liq ONE (15:32)
[2022-11-01] MEDS ORDERED: HYDROMORPHONE HCL 1 MG/ML INJ IV PRN (15:48)
[2022-11-01] MEDS: HYDROMORPHONE HCL 1 MG/ML INJ ONE ×2 (16:00→16:06)
[2022-11-01] MEDS: NA CHLORIDE 0.9% 1,000 ML IV SCH (16:30)
--- NOTE | 2022-11-01 17:51 | EKG ---
Test Date: 2022-11-01 Test Time: 11:05:42 Hotel Night Auditor: Kelly MILLER MEASUREMENT RESULTS: Intervals: Rate: 54 CA: 170 QRSD: 82 QT: 450 QTc: 426 [place]: P: 63 CA: 170 QRS: 54 T: 34 INTERPRETIVE STATEMENTS: Sinus bradycardia Anterior infarct, age undetermined Abnormal ECG Compared to ECG 10/07/2002 13:34:00 Myocardial infarct finding now present Sinus rhythm no longer present Electronically Signed On 11-01-22 17:50:33 CDT by Taye Winter
[2022-11-01] MEDS ORDERED: HYDRALAZINE HCL 20 MG/ML VIAL IV PRN (17:52)
[2022-11-01 18:14] VITALS: BMI 31.7
[2022-11-01] MEDS: HYDROCODONE/APAP 7.5/325 MG TAB PO PRN (20:39)
[2022-11-02] MEDS: NA CHLORIDE 0.9% 1,000 ML IV SCH (00:32)
[2022-11-02] MEDS: PIPER TAZO 3.375 GM in NA CHLORIDE 0.9% 100 ML IV SCH ×2 (00:32→09:09)
[2022-11-02 03:20] LABS: Absolute Lymphocytes (CBC) 0.8 K/uL (0.7-4.9); Hematocrit 39.6 % (36.0-45.0); Lymphocytes % 6.8 % (15.3-44.8); MCV 94.1 fL (80-100); MPV 9.7 fL (7.6-11.3); Platelets 188 thou/uL (152-406); RBC Red Blood Cell Count 4.21 M/uL (3.86-4.86)
[2022-11-02] MEDS: HYDROCODONE/APAP 7.5/325 MG TAB PO PRN (04:12)
--- NOTE | 2022-11-02 08:45 | P.DS ---
Admission Date: 11/01/22 Discharge Date: 11/02/22 Discharge Condition: GOOD Reason for Admission: Abdominal pain. Consultations: General Surgery - Dr. Perez Brief History of Present Illness: 62yo F, PMH: hypertension, hyperlipidemia Patient presents with complaint of abdominal pain located in the epigastric area with radiation to the right upper quadrant onset this morning. Patient indicated that pain radiates to her back as well. Patient rated pain as 10/10 in severity and described pain as burning in quality. Patient reported associated signs and symptoms of chills, headache, nausea, vomiting and diarrhea x1 episode. Patient denies any other signs and symptoms. Symptoms are aggravated or relieved by nothing. Hospital Course: Problem List: Acute cholecystitis and cholelithiasis Nausea with Vomiting Hypertension Hyperlipidemia CKD 2 Patient presented with epigastric abdominal pain. She was found to have Acute cholecystitis and cholelithiasis. She underwent successful laparoscopic cholecystectomy with Dr. Perez 11/01. Patient was given post op IV antibiotics (Zosyn) and is to continue PO augmentin on discharge. Patient was monitored overnight, feeling better, tolerating diet without issue, was deemed stable for discharge home. Physical Exam: GEN: Alert, oriented, NAD HEENT: Normal conjunctiva, sclera anicteric CV: Regular rate and rhythm, no edema Pulm: Nonlabored respirations on room air ABD: Soft, Mild tenderness, Dressing in place c/d/i MSK: No joint tenderness Integumentary: No rashes Neuro: Normal speech, normal affect Vital Signs/Physical Exam: Temp Pulse Resp BP Pulse Ox 98.1 F 63 18 109/65 92 11/02/22 04:00 11/02/22 04:00 11/02/22 04:00 11/02/22 04:00 11/02/22 04:00 Laboratory Data at Discharge: WBC 11.80 thou/uL (4.3-10.9) H 11/02/22 02:35 Hgb 13.4 g/dL (12.0-15.0) D 11/02/22 02:35 Hct 39.6 % (36.0-45.0) 11/02/22 02:35 Plt Count 188 thou/uL (152-406) 11/02/22 02:35 Sodium Cancelled 11/02/22 Unknown Potassium Cancelled 11/02/22 Unknown BUN Cancelled 11/02/22 Unknown Creatinine Cancelled 11/02/22 Unknown Glucose Cancelled 11/02/22 Unknown Phosphorus 3.8 mg/dL (2.5-4.9) 11/01/22 11:13 Magnesium 1.9 mg/dL (1.6-2.4) 11/01/22 11:13 Total Bilirubin Cancelled 11/02/22 Unknown AST Cancelled 11/02/22 Unknown ALT Cancelled 11/02/22 Unknown Alkaline Phosphatase Cancelled 11/02/22 Unknown Lipase Cancelled 11/02/22 Unknown Home Medications: Ezetimibe [Zetia] 10 mg PO DAILY 11/01/22 Nebivolol HCl [Bystolic] 5 mg PO DAILY 11/01/22 Ondansetron [Zofran] 4 mg PO Q6H PRN #10 tab 11/02/22 New Medications: Ondansetron [Zofran] 4 mg PO Q6H PRN #10 tab PRN Reason: Nausea / Vomiting Physician Discharge Instructions: Patient presented with epigastric abdominal pain. She was found to have Acute cholecystitis and cholelithiasis. She underwent successful laparoscopic cholecystectomy with Dr. Perez 11/01. Patient was given post op IV antibiotics (Zosyn) and is to continue PO augmentin on discharge. Patient was monitored overnight, feeling better, tolerating diet without issue, was deemed stable for discharge home. Post op instruction below per Dr. Perez Remove outer dressing in am and shower Keep steri-strips on at all times IS as ordered [place], Colace and Augmentin called into Patient's Pharmacy Follow up in Dr. Vega office in one week, call for appointment No heavy lifting or strenous excercise Resume home meds and diet Diet: Low sodium Activity: No lifting more than 10 lbs Followup: NONE,NONE [Primary Care Provider] - Denzel Perez MD [ACTIVE - CAN ADMIT] - 1 Week Time spent managing pt's care (in minutes): 45
[2022-11-02 08:55] VITALS: O2SAT 92
[2022-11-02] MEDS ORDERED: EZETIMIBE 10 MG TAB PO SCH (09:00)
[2022-11-02] MEDS: NEBIVOLOL HCL 5 MG TAB PO SCH ×2 (09:00→09:07)
--- NOTE | 2022-11-02 09:21 | P.PN ---
Date of Service: 11/02/22 Subjective: Patient with incisional pain only. Patient is tolerating liquid diet. Objective: Vital signs stable, afebrile. WBCs trending down. Abdomen: Soft, nondistended, positive bowel sounds and minimal incisional tenderness. Dressing is clean dry intact Assessment: Status post lap tabby Plan: Patient cleared for discharge from surgery point of view. Discharge instructions given. Antibiotics and pain medicine called in. CC:
[2022-11-02 09:23] VITALS: BP 114/67; TEMP 98
== END 2022-11-02 10:29 | disposition home or self-care (01) ==
LOC: ER 10:39 → INTOOBSV 14:04 → ERHOLD 14:04 → 2ND 15:54
PROVIDERS: ADMIT Hospitalist; ATTEND Hospitalist
PROC: 0FT44ZZ Resection of Gallbladder, Percutaneous Endoscopic Approach (ICD-10-PCS; principal; 2022-11-01 14:00)
DX: K80.00 Calculus of gallbladder with acute cholecystitis without obstruction (principal); I10 Essential (primary) hypertension; E78.5 Hyperlipidemia, unspecified; R11.2 Nausea with vomiting, unspecified; R19.7 Diarrhea, unspecified; R51.9 Headache, unspecified; N18.2 Chronic kidney disease, stage 2 (mild)
CPT/HCPCS: 47562; 93005; 87040; 85025 ×2; 81001; 36415 ×2; 83735; 84100; 88304; 84484; 83690; 80053; 74177; 76705; 94010; 96375; 96374; 99285; Q9967; J2704 ×2; J2543 ×3; J2001; J2250; J3010; J1100; J1170 ×2; J2405 ×4; J7120; J7030 ×3; G0378 ×4